=== PATIENT | male | born 1960 | race Caucasian/White ===

== ENCOUNTER → 2016-12-21 | Outpatient (CLI) | payer OTHER ==
[~2016-12-21] VITALS: Ht 177.8 cm; Wt 141.4 kg
[2016-12-21 14:42] VITALS: BP 127/79; PULSE 67; Ht 177.8 cm; Wt 141.4 kg
== END | disposition home or self-care (01) ==
LOC: C.NEUR 13:33
PROVIDERS: ATTEND Physician Assistant
DX: G47.33 Obstructive sleep apnea (adult) (pediatric) (principal); E66.9 Obesity, unspecified; J34.2 Deviated nasal septum; J34.3 Hypertrophy of nasal turbinates; K21.9 Gastro-esophageal reflux disease without esophagitis

== ENCOUNTER 2019-05-14 18:39 | Inpatient (IN) ==
[2019-05-14] MEDS ORDERED: PROMETHAZINE HCL 12.5 MG in SODIUM CHLORIDE 0.9% 50 ML IV STA ×2 (18:51→20:51)
[2019-05-14] MEDS ORDERED: SODIUM CHLORIDE 0.9% 1000ML 1,000 ML IV SCH (19:00)
[2019-05-14] MEDS ORDERED: PROMETHAZINE 12.5 MG/50.5 ML NSS IV ONE (19:28)
[2019-05-14 19:36] LABS: Hematocrit (blood only) 37.6 % (42-52); Hemoglobin 12.4 g/dL (14.0-18.0); Mean Corpuscular Hemoglobin 27.4 pg (25-34); Mean Platelet Volume 9.3 fL (7.4-10.4); Platelet Count 279 K/uL (130-400); Red Blood Count 4.53 M/uL (4.7-6.1); White Blood Count 16.09 K/uL (4.8-10.8)
[2019-05-14 19:53] LABS: Albumin Level 2.8 gm/dl (3.4-5.0); BUN Creatinine Ratio 20.2 (10-20); Calcium 8.6 mg/dl (8.5-10.1); Creatinine Clr Calc Pharmacy 121.6 ml/min; Est GFR (African American) 114.6; Est GFR (Non-African American) 98.9; Potassium 3.7 mmol/L (3.5-5.1)
--- NOTE | 2019-05-14 19:54 | Emergency Department Note ---
History of Present Illness General Chief complaint: Vomiting Stated complaint: THROWING UP LAST 2 DAYS Source: patient and family Mode of arrival: ambulatory Limitations: no limitations History of Present Illness Provider complaint: Vomiting Onset (ago): day(s) 2 Maximum Pain Intensity: 1 Current Pain Intensity: 0 Relieved By: + none Exacerbated By: + eating Treatments prior to arrival: none (Compazine and Zofran, last dose last even ing.) This patient is a 58-year-old male who presents emergency department with complaints of vomiting, particularly after eating for the last several days. The patient has stage IV pancreatic cancer and recently completed his second round of chemotherapy. He did receive IV fluids and antiemetics 2 days ago at the cancer center. Patient's states shortly thereafter he began vomiting with any p.o. intake. Patient denies any pain, except with active vomiting. He denies any recent fevers or passing blood in the vomit or stool. Patient complains of dry mouth and inability to tolerate even sips of water. Home Medications Home Medications Medication Instructions Recorded Confirmed Type atenolol 50 mg tablet 50 mg PO HS tab 12/16/18 05/14/19 History [facility]-3 1 cap PO QAM 02/13/19 05/14/19 History aspirin 81 mg PO HS 02/13/19 05/14/19 History atorvastatin 20 mg PO QAM 02/13/19 05/14/19 History cetirizine [24Hour Allergy] 10 mg PO QAM 02/13/19 05/14/19 History losartan [Cozaar] 25 mg PO QAM 02/13/19 05/14/19 History multivitamin 1 tab PO QAM 02/13/19 05/14/19 History ibuprofen 600 - 800 mg PO BID PRN 03/31/19 05/14/19 History ascorbic acid (vitamin C) 500 mg 500 mg PO QAM 04/08/19 05/14/19 History capsule cholecalciferol (vitamin D3) 4,000 4,000 units PO DAILY 04/08/19 05/14/19 History unit capsule lactobacillus combination no.9 4 4,000 mmu cells PO DAILY 04/08/19 05/14/19 History billion cell capsule metformin 500 mg tablet 1,000 mg PO BID tab 04/08/19 05/14/19 History Juice Plus 1 dose PO DAILY 04/11/19 05/14/19 History acetaminophen [Tylenol Extra 1,000 mg PO Q6H PRN 04/16/19 05/14/19 History Strength] dronabinol [Marinol] 2.5 mg PO BID PRN 05/14/19 05/14/19 History lorazepam [Ativan] 0.5 mg PO Q4 PRN 05/14/19 05/14/19 History ondansetron HCl [Zofran] 8 mg PO Q8 PRN 05/14/19 05/14/19 History prochlorperazine maleate 10 mg PO Q6 PRN 05/14/19 05/14/19 History [Compazine] promethazine 25 mg AR Q6H PRN #12 ea 05/14/19 Rx sertraline 50 mg PO DAILY 05/14/19 05/14/19 History Allergies Allergy/AdvReac Type Severity Reaction Status Date / Time lisinopril Allergy Unknown Cough Verified 05/14/19 20:52 Past Med/Surg History Medical History Diabetes mellitus, type 2 NIDDM Fatty liver Hx of cardiac murmur no murmur noted per anesthesia evaluation 02/14/19 ([facility] Hyperlipidemia Hypertension Malignant neoplasm of pancreas metastatic to liver Morbid obesity Pancreatic cancer (Acute) Port-A-Cath in place (04/16/19) Insertion of Mediport into Left Internal Jugular with Fluoroscopy Dr. Estrada 04/16/19 Sleep apnea CPAP Surgical History History of tonsillectomy History of tooth extraction Hx of biopsy PANCREAS Strabismus REPAIR Family History Father Family history of diabetes mellitus Diabetes Mother Breast cancer Social History Preferred Language: Cuban Communication Ability: Effective Annual Campaign Manager Required: No Beliefs That Will Affect Care: None marital status: Current Living Situation: Spouse Feels Safe at Home: Yes Smoking Status: Never smoker Second Hand Exposure: No ; Hx Alcohol Use: No Hx Substance Use: No Review of Systems See HPI for pertinent positives & negatives. and A total of 10 systems reviewed and were otherwise negative Physical Exam Vital Signs Vital Signs - 24 hr 05/15/19 07:18 05/15/19 12:01 Temperature 37.1 C 36.8 C Temperature Source Oral Oral Pulse Rate [Right Finger] 73 80 Respiratory Rate 18 16 Blood Pressure [Right Arm] 130/78 142/81 H Blood Pressure Mean [Right Arm] 95 101 Blood Pressure Position [Right Arm] Lying Lying Pulse Oximetry 97 95 Vital signs reviewed. General: Well-appearing 58-year-old male, in some discomfort. No distress. HEENT: No scleral icterus, PERRLA, neck supple. Atraumatic. Cardiovascular: Regular rate and rhythm, no extra sounds. Pulmonary: Clear to auscultation bilaterally, normal work of breathing. Abdomen: Soft, nontender, nondistended, positive bowel sounds. Musculoskeletal: Atraumatic, no peripheral edema. Neurologic: Patient awake alert and oriented x 3 Skin: Warm, dry, no rash Course Administered Medications Enoxaparin Sodium (Lovenox) 40 mg SQ Q24H [facility] Stop: 06/14/19 07:59 Last Admin: 05/15/19 08:28 Dose: 40 mg Documented by: [id number] Famotidine 20 mg/ Syringe 5 mls @ 2.5 mls/min IV Q12 [facility] Stop: 06/13/19 23:44 Last Admin: 05/15/19 21:13 Dose: 2.5 mls/min Documented by: [id number] Admin: 05/15/19 08:28 Dose: 2.5 mls/min Documented by: [id number] Admin: 05/15/19 00:52 Dose: 2.5 mls/min Documented by: [id number] Potassium Chloride/Sodium Chloride (Normal Saline W/20 Meq Kcl) 20 meq in 1,000 mls @ 150 mls/hr IV .Q6H40M [facility] Stop: 06/14/19 00:11 Last Admin: 05/15/19 23:18 Dose: 150 mls/hr Documented by: [id number] Infusion: 05/15/19 20:13 Dose: 150 mls/hr Documented by: [id number] Admin: 05/15/19 13:32 Dose: 150 mls/hr Documented by: [id number] Infusion: 05/15/19 13:15 Dose: 150 mls/hr Documented by: [id number] Admin: 05/15/19 06:34 Dose: 150 mls/hr Documented by: [id number] Infusion: 05/15/19 06:34 Dose: 150 mls/hr Documented by: [id number] Admin: 05/15/19 00:51 Dose: 150 mls/hr Documented by: [id number] Insulin Aspart (Novolog Flexpen) 0 units SC ACHS [facility] Stop: 06/14/19 20:59 Last Admin: 05/15/19 21:53 Dose: 3 units Documented by: [id number] Cosigned by: [id number] Lorazepam (Ativan) 0.5 mg PO Q6H PRN PRN Reason: Anxiety Stop: 06/14/19 16:54 Last Admin: 05/15/19 17:06 Dose: 0.5 mg Documented by: [id number] Metoclopramide HCl (Reglan) 10 mg IV Q6H [facility] Stop: 06/14/19 11:59 Last Admin: 05/15/19 22:21 Dose: 10 mg Documented by: [id number] Admin: 05/15/19 15:50 Dose: 10 mg Documented by: [id number] Discontinued Medications Sodium Chloride (Nss 1000ml) 1,000 mls @ 999 mls/hr IV .Q1H1M [facility] Stop: 05/14/19 20:00 Last Infusion: 05/14/19 20:46 Dose: 0 mls/hr Documented by: [id number] Admin: 05/14/19 19:32 Dose: 999 mls/hr Documented by: [id number] Promethazine HCl 12.5 mg/ (Sodium Chloride) 50.5 mls @ 202 mls/hr IV NOW STA Stop: 05/14/19 19:05 Last Admin: 05/14/19 19:39 Dose: Not Given Documented by: [id number] Promethazine HCl 12.5 mg/ (Sodium Chloride) 50.5 mls @ 202 mls/hr IV NOW STA Stop: 05/14/19 21:05 Last Infusion: 05/14/19 21:33 Dose: 0 mls/hr Documented by: [id number] Admin: 05/14/19 21:14 Dose: 202 mls/hr Documented by: [id number] Dextrose/Sodium Chloride (D5w And Nss) 1,000 mls @ 125 mls/hr IV .Q8H [facility] Stop: 06/13/19 21:59 Last Infusion: 05/15/19 22:27 Dose: 0 mls/hr Documented by: [id number] Admin: 05/14/19 21:55 Dose: 125 mls/hr Documented by: [id number] Promethazine HCl 25 mg/ Sodium (Chloride) 51 mls @ 204 mls/hr IV Q6H PRN PRN Reason: Nausea And Vomiting Stop: 06/13/19 23:53 Last Infusion: 05/15/19 04:30 Dose: 0 mls/hr Documented by: [id number] Admin: 05/15/19 04:06 Dose: 204 mls/hr Documented by: [id number] Potassium Phosphate 9 mmol/ (Sodium Chloride) 253 mls @ 88 mls/hr IV ONE ONE Stop: 05/15/19 16:22 Last Infusion: 05/15/19 16:30 Dose: 0 mls/hr Documented by: [id number] Admin: 05/15/19 13:31 Dose: 88 mls/hr Documented by: [id number] Insulin Aspart (Novolog Flexpen) 0 units SC Q6 [facility] Stop: 06/14/19 05:59 Last Admin: 05/15/19 12:33 Dose: 3 units Documented by: [id number] Cosigned by: [id number] Admin: 05/15/19 06:35 Dose: 2 units Documented by: [id number] Cosigned by: [id number] Insulin Aspart (Novolog Flexpen) 0 units SC Q6 [facility] Stop: 06/14/19 05:59 Last Admin: 05/15/19 18:20 Dose: 7 units Documented by: [id number] Cosigned by: [id number] Lorazepam (Ativan) 0.5 mg PO NOW STA Stop: 05/15/19 21:31 Last Admin: 05/15/19 21:52 Dose: 0.5 mg Documented by: [id number] Metoclopramide HCl (Reglan) 10 mg IV NOW STA Stop: 05/15/19 09:23 Last Admin: 05/15/19 10:34 Dose: 10 mg Documented by: [id number] Ondansetron HCl (Zofran) 4 mg IV Q6H PRN PRN Reason: Nausea Stop: 06/14/19 00:11 Last Admin: 05/15/19 06:46 Dose: 4 mg Documented by: [id number] Admin: 05/15/19 00:51 Dose: 4 mg Documented by: [id number] Ondansetron HCl (Zofran) 4 mg IV NOW STA Stop: 05/15/19 09:23 Last Admin: 05/15/19 09:31 Dose: 4 mg Documented by: [id number] Promethazine HCl (Phenergan) Confirm Administered Dose 12.5 mg IV .STK-MED ONE Stop: 05/14/19 19:29 Last Admin: 05/14/19 19:32 Dose: 12.5 mg Documented by: [id number] Medical Decision Making Differential Diagnosis Differential diagnosis: Etiologies such as chemotherapeutic effect, bowel obstruction, gastroenteritis, food borne illness, appendicitis, diverticulitis, inflammatory bowel disease, GI bleed, biliary pathology, cardiac process, intracranial process, as well as others were entertained. Medical Records Attestation: I reviewed the patient's medical records. Home Medications Current Medication List: was personally reviewed by me Laboratory Data Attestation: I reviewed the patient's lab results. Result diagrams: 05/15/19 08:36 05/15/19 08:36 Lab Results 05/14/19 05/14/19 05/15/19 Range/Units 17:25 17:25 00:24 WBC 16.09 H (4.8-10.8) K/uL RBC 4.53 L (4.7-6.1) M/uL Hgb 12.4 L (14.0-18.0) g/dL Hct 37.6 L (42-52) % MCV 83.0 (80-100) fL MCH 27.4 (25-34) pg MCHC 33.0 (32-36) g/dL RDW Std Deviation 42.0 (36.4-46.3) fL RDW Coeff of Chava 14.0 (11.5-14.5) % Plt Count 279 (130-400) K/uL MPV 9.3 (7.4-10.4) fL Immature Gran % (Auto) 6.7 % Neut % (Auto) 83.7 % Lymph % (Auto) 6.2 % Grady % (Auto) 2.3 % Eos % (Auto) 0.9 % Baso % (Auto) 0.2 % Immature Gran # (Auto) 1.08 H (0.00-0.02) K/uL Neut # (Auto) 13.47 H (1.4-6.5) K/uL Lymph # (Auto) 1.00 L (1.2-3.4) K/uL Grady # (Auto) 0.37 (0.11-0.59) K/uL Eos # (Auto) 0.14 (0-0.5) K/uL Baso # (Auto) 0.03 (0-0.2) K/uL Hypersegmented Neuts 1+ Sodium 135 L (136-145) mmol/L Potassium 3.7 (3.5-5.1) mmol/L Chloride 100 (98-107) mmol/L Carbon Dioxide 26 (21-32) mmol/L Anion Gap 9.0 (3-11) BUN 17 (7-18) mg/dl Creatinine 0.82 (0.6-1.4) mg/dl Est Cr Clr Drug Dosing 121.6 ml/min Est GFR ( Amer) 114.6 Est GFR (Non-Af Amer) 98.9 BUN/Creatinine Ratio 20.2 H (10-20) Glucose 263 H (70-99) mg/dl POC Glucose 254 H (70-99) mg/dl Calcium 8.6 (8.5-10.1) mg/dl Phosphorus (2.5-4.9) mg/dl Magnesium (1.8-2.4) mg/dl Total Bilirubin 0.6 (0.2-1) mg/dl AST 15 (15-37) U/L ALT 26 (12-78) U/L Alkaline Phosphatase 501 H (45-117) U/L Total Protein 7.2 (6.4-8.2) gm/dl Albumin 2.8 L (3.4-5.0) gm/dl Globulin 4.4 H (2.5-4.0) gm/dl Albumin/Globulin Ratio 0.6 L (0.9-2) Lipase 87 (73-393) U/L 05/15/19 05/15/19 05/15/19 Range/Units 03:52 06:05 08:36 WBC 14.12 H (4.8-10.8) K/uL RBC 4.21 L (4.7-6.1) M/uL Hgb 11.5 L (14.0-18.0) g/dL Hct 34.5 L (42-52) % MCV 81.9 (80-100) fL MCH 27.3 (25-34) pg MCHC 33.3 (32-36) g/dL RDW Std Deviation 42.0 (36.4-46.3) fL RDW Coeff of Chava 14.0 (11.5-14.5) % Plt Count 226 (130-400) K/uL MPV 8.6 (7.4-10.4) fL Immature Gran % (Auto) % Neut % (Auto) % Lymph % (Auto) % Grady % (Auto) % Eos % (Auto) % Baso % (Auto) % Immature Gran # (Auto) (0.00-0.02) K/uL Neut # (Auto) (1.4-6.5) K/uL Lymph # (Auto) (1.2-3.4) K/uL Grady # (Auto) (0.11-0.59) K/uL Eos # (Auto) (0-0.5) K/uL Baso # (Auto) (0-0.2) K/uL Hypersegmented Neuts Sodium (136-145) mmol/L Potassium (3.5-5.1) mmol/L Chloride (98-107) mmol/L Carbon Dioxide (21-32) mmol/L Anion Gap (3-11) BUN (7-18) mg/dl Creatinine (0.6-1.4) mg/dl Est Cr Clr Drug Dosing ml/min Est GFR ( Amer) Est GFR (Non-Af Amer) BUN/Creatinine Ratio (10-20) Glucose (70-99) mg/dl POC Glucose 206 H 200 H (70-99) mg/dl Calcium (8.5-10.1) mg/dl Phosphorus (2.5-4.9) mg/dl Magnesium (1.8-2.4) mg/dl Total Bilirubin (0.2-1) mg/dl AST (15-37) U/L ALT (12-78) U/L Alkaline Phosphatase (45-117) U/L Total Protein (6.4-8.2) gm/dl Albumin (3.4-5.0) gm/dl Globulin (2.5-4.0) gm/dl Albumin/Globulin Ratio (0.9-2) Lipase (73-393) U/L 05/15/19 05/15/19 Range/Units 08:36 11:57 WBC (4.8-10.8) K/uL RBC (4.7-6.1) M/uL Hgb (14.0-18.0) g/dL Hct (42-52) % MCV (80-100) fL MCH (25-34) pg MCHC (32-36) g/dL RDW Std Deviation (36.4-46.3) fL RDW Coeff of Chava (11.5-14.5) % Plt Count (130-400) K/uL MPV (7.4-10.4) fL Immature Gran % (Auto) % Neut % (Auto) % Lymph % (Auto) % Grady % (Auto) % Eos % (Auto) % Baso % (Auto) % Immature Gran # (Auto) (0.00-0.02) K/uL Neut # (Auto) (1.4-6.5) K/uL Lymph # (Auto) (1.2-3.4) K/uL Grady # (Auto) (0.11-0.59) K/uL Eos # (Auto) (0-0.5) K/uL Baso # (Auto) (0-0.2) K/uL Hypersegmented Neuts Sodium 139 (136-145) mmol/L Potassium 3.6 (3.5-5.1) mmol/L Chloride 108 H (98-107) mmol/L Carbon Dioxide 25 (21-32) mmol/L Anion Gap 7.0 (3-11) BUN 13 (7-18) mg/dl Creatinine 0.74 (0.6-1.4) mg/dl Est Cr Clr Drug Dosing 134.7 ml/min Est GFR ( Amer) 119.5 Est GFR (Non-Af Amer) 103.1 BUN/Creatinine Ratio 17.6 (10-20) Glucose 202 H (70-99) mg/dl POC Glucose 218 H (70-99) mg/dl Calcium 8.3 L (8.5-10.1) mg/dl Phosphorus 2.4 L (2.5-4.9) mg/dl Magnesium 2.2 (1.8-2.4) mg/dl Total Bilirubin (0.2-1) mg/dl AST (15-37) U/L ALT (12-78) U/L Alkaline Phosphatase (45-117) U/L Total Protein (6.4-8.2) gm/dl Albumin (3.4-5.0) gm/dl Globulin (2.5-4.0) gm/dl Albumin/Globulin Ratio (0.9-2) Lipase (73-393) U/L Blood Pressure Blood Pressure Findings: Normal blood pressure Blood Pressure Disposition: did not require urgent referral MDM Narrative This patient was evaluated and appeared to be in no significant distress. Patient's physical examination is concerning for chronically ill state. IV fluids were administered and the patient was given Phenergan 12.5 mg IV. His laboratory work is notable for an elevated WBC at 16 with a creatinine of 0.82. Patient's electrolytes are within normal limits. Patient's glucose is mildly elevated. Patient's abdominal x-ray series reveals no evidence of obstruction or free air. Patient did require an additional 12.5 mg of IV Phenergan. He declined the need for any pain medication. I did help multiple discussions with the patient and his family. I reviewed the patient's medical records and input from oncology. Patient was able to tolerate several ice chips. I am concerned that the patient and family do not have a realistic expectation for quality of life and progression of this disease. Patient feels most comfortable with an overnight stay for IV hydration and nausea management. He will require a palliative care consult and discussion with oncology. Patient and family are aware of this plan and agree. Impression & Plan Chemotherapy induced nausea and vomiting, Pancreatic cancer Discharge Plan Visit Data *Final* Discharge Date/Time: 05/14/19 23:33 Chief Complaint: Vomiting Stated Complaint: THROWING UP LAST 2 DAYS ED Provider: Kelsey Hernandez Discharge Problem: Chemotherapy induced nausea and vomiting, Pancreatic cancer Patient Disposition: Admitted As Inpatient Condition: Fair Discharge Instructions Interventions: ED Discharge Assessment Last Done: 05/14/19 23:33 Discharge Problem: Pancreatic cancer Qualifiers: Pancreatic malignancy location: unspecified Qualified Code(s): C25.9 - M alignant neoplasm of pancreas, unspecified
[2019-05-14 19:56] LABS: Albumin Globulin Ratio 0.6 (0.9-2); Bilirubin,Total 0.6 mg/dl (0.2-1); Globulin 4.4 gm/dl (2.5-4.0); Total Protein 7.2 gm/dl (6.4-8.2)
[2019-05-14 20:05] LABS: Basophils # (auto) 0.03 K/uL (0-0.2); Basophils % (auto) 0.2 %; Eosinophils # (auto) 0.14 K/uL (0-0.5); Eosinophils % (auto) 0.9 %; Immature Granulocytes # (auto) 1.08 K/uL (0.00-0.02); Immature Granulocytes % (auto) 6.7 %; Lymphocytes % (auto) 6.2 %; Monocytes # (auto) 0.37 K/uL (0.11-0.59); Monocytes % (auto) 2.3 %; Neutrophils # (auto) 13.47 K/uL (1.4-6.5); Neutrophils % (auto) 83.7 %
--- NOTE | 2019-05-14 20:11 | XRay Report ---
PA CHEST RADIOGRAPH AND UPRIGHT AND SUPINE AP RADIOGRAPHS OF THE ABDOMEN CLINICAL HISTORY: Vomiting. COMPARISON STUDY: Chest radiograph April 16, 2019. FINDINGS: Left internal jugular [id number] is in place. There is mild elevation of the right hem idiaphragm. No pneumothorax or pleural effusion is noted. There is no consolidation or evidence for p ulmonary edema. Cardiomediastinal silhouette is normal. There is no free air. The bowel gas pattern i s unremarkable. IMPRESSION: 1. No free air or evidence of bowel obstruction. 2. No acute cardiopulmonary findings. ACT 112: Negative or not required by law. Electronically signed by: Otis Vizcaino M.D. 05/14/2019 8:10 PM
[2019-05-14] MEDS ORDERED: D5W AND NSS 1,000 ML IV SCH (22:00)
--- NOTE | 2019-05-14 23:20 | History & Physical Report ---
Date of Service May 14, 2019 Assessment & Plan (1) Chemotherapy induced nausea and vomiting: Chemotherapy-induced nausea vomiting/malignant neoplasm of pancreas metastatic to liver- NPO IV fluids Place on Zofran 4 mg IV every 6 hours as needed, with repeat in 30 minutes if needed. As a backup have the Phenergan 25 mg IV every [address] of abdomen pelvis to assess for possible early ileus/obstruction. Consult oncology. Consult palliative care. Present on Admission?: Yes (2) Malignant neoplasm of pancreas metastatic to liver: See above Present on Admission?: Yes (3) Laryngopharyngeal reflux: Placed on famotidine 20 mg IV every 12 hours Present on Admission?: Yes (4) Obstructive sleep apnea of adult: Would not use CPAP mask due to issues with active vomiting Present on Admission?: Yes (5) Hyperlipidemia: Hold atorvastatin Present on Admission?: Yes (6) Hypertension: Hold aspirin, losartan and atenolol Present on Admission?: Yes (7) Diabetes mellitus, type 2: Hold metformin. Placed on Accu-Cheks before meals and at bedtime/every 6 hours, with NovoLog coverage per scale Present on Admission?: Yes (8) Moderate dehydration: Placed on normal saline + KCl 20 mEq at 150 mils per hour Present on Admission?: Yes History of Present Illness Chief Complaint: The patient presents to the emergency department with uncontrolled nausea and vomiting over the past 2 days. Primary Care Provider: Georges Licea MD The patient is a 58-year-old male with a past medical history of metastatic pancreatic cancer to liver, presently undergoing chemotherapy, who is now been able to hold anything down for the past 2 days. He did receive IV fluids 2 days ago at the cancer center. He reports his mouth is very dry, and is unable to tolerate his oral medications or sips of water. Allergies Allergy/AdvReac Type Severity Reaction Status Date / Time lisinopril Allergy Unknown Cough Verified 05/14/19 20:52 Home Medications Home Medications Medication Instructions Recorded Confirmed Type atenolol 50 mg tablet 50 mg PO HS tab 12/16/18 05/14/19 History [place]-3 1 cap PO QAM 02/13/19 05/14/19 History aspirin 81 mg PO HS 02/13/19 05/14/19 History atorvastatin 20 mg PO QAM 02/13/19 05/14/19 History cetirizine [24Hour Allergy] 10 mg PO QAM 02/13/19 05/14/19 History losartan [Cozaar] 25 mg PO QAM 02/13/19 05/14/19 History multivitamin 1 tab PO QAM 02/13/19 05/14/19 History ibuprofen 600 - 800 mg PO BID PRN 03/31/19 05/14/19 History ascorbic acid (vitamin C) 500 mg 500 mg PO QAM 04/08/19 05/14/19 History capsule cholecalciferol (vitamin D3) 4,000 4,000 units PO DAILY 04/08/19 05/14/19 History unit capsule lactobacillus combination no.9 4 4,000 mmu cells PO DAILY 04/08/19 05/14/19 History billion cell capsule metformin 500 mg tablet 1,000 mg PO BID tab 04/08/19 05/14/19 History Juice Plus 1 dose PO DAILY 04/11/19 05/14/19 History acetaminophen [Tylenol Extra 1,000 mg PO Q6H PRN 04/16/19 05/14/19 History Strength] dronabinol [Marinol] 2.5 mg PO BID PRN 05/14/19 05/14/19 History lorazepam [Ativan] 0.5 mg PO Q4 PRN 05/14/19 05/14/19 History ondansetron HCl [Zofran] 8 mg PO Q8 PRN 05/14/19 05/14/19 History prochlorperazine maleate 10 mg PO Q6 PRN 05/14/19 05/14/19 History [Compazine] promethazine 25 mg ID Q6H PRN #12 ea 05/14/19 Rx sertraline 50 mg PO DAILY 05/14/19 05/14/19 History Past Med/Surg History Medical History Diabetes mellitus, type 2 NIDDM Fatty liver Hx of cardiac murmur no murmur noted per anesthesia evaluation 02/14/19 ([facility]) Hyperlipidemia Hypertension Morbid obesity Pancreatic cancer Port-A-Cath in place (04/16/19) Insertion of Mediport into Left Internal Jugular with Fluoroscopy Dr. Estrada 04/16/19 Sleep apnea CPAP Surgical History History of tonsillectomy History of tooth extraction Hx of biopsy PANCREAS Strabismus REPAIR Family History Father Family history of diabetes mellitus Diabetes Mother Breast cancer Social History Preferred Language: Northern Irish Communication Ability: Effective Control Specialist Required: No Beliefs That Will Affect Care: None marital status: Current Living Situation: Spouse Feels Safe at Home: Yes Smoking Status: Never smoker Do You Dip or Chew Tobacco: No ; Second Hand Exposure: No ; Hx Alcohol Use: No Hx Substance Use: No Review of Systems Review of Systems: The patient denies chest pain, palpitations, shortness of breath, dyspnea on exertion, cough, lower extremity swelling, leonides, chills, sweats, diarrhea , constipation, abdominal pain, pelvic pain, blood in urine or stool, dysuria, urinary frequency or urgency, lightheadedness, dizziness, headache, memory loss, loss of consciousness, rash, abnormal bruising or bleeding, imbalance, focal weakness, numbness or tingling in arms or legs, generalized arthralgias or myalgias, back or neck pain, or night sweats. The review of systems is otherwise negative other than for that already noted above, and at least 10 systems have been reviewed. Physical Exam Physical Exam: The patient is awake, alert and oriented 3, looks very fatigued, normocephalic and atraumatic, lying in bed and in no acute distress. HEENT--PERRL, EOMI, mucous membranes and oropharynx very dry. Neck--supple. No JVD. No bruits. Thyroid normal, trachea midline, no adenopathy. Heart--normal S1 and S2. No murmurs, rubs or gallops. Lungs--clear bilaterally, no respiratory distress, no accessory muscle use. Abdomen--decreased bowel sounds and soft. Nontender. Nondistended. Obese. Extremities--no cyanosis or clubbing. No edema. Dermatologic--skin is dry, no rashes. Neurologic--cranial nerves II through XII grossly intact. Rheumatologic--normal range of motion. Psychiatric--depressed Results & Data Vital Signs (Past 12 Hours) Vital Signs Temp Pulse Pulse Resp BP BP Pulse Ox 05/14/19 23:07 82 20 131/86 98 05/14/19 21:15 74 20 148/96 H 98 05/14/19 20:10 73 24 96 05/14/19 20:00 69 24 96 05/14/19 19:58 70 31 H 96 05/14/19 19:41 69 25 H 95 05/14/19 19:39 69 96 05/14/19 19:36 69 26 H 136/84 95 05/14/19 18:43 98.4 F 84 18 111/75 97 Laboratory Results Laboratory Results WBC 16.09 K/uL (4.8-10.8) H 05/14/19 17:25 RBC 4.53 M/uL (4.7-6.1) L 05/14/19 17:25 Hgb 12.4 g/dL (14.0-18.0) L 05/14/19 17:25 Hct 37.6 % (42-52) L 05/14/19 17:25 MCV 83.0 fL (80-100) 05/14/19 17:25 MCH 27.4 pg (25-34) 05/14/19 17:25 MCHC 33.0 g/dL (32-36) 05/14/19 17:25 RDW Std Deviation 42.0 fL (36.4-46.3) 05/14/19 17:25 RDW Coeff of Chava 14.0 % (11.5-14.5) 05/14/19 17:25 Plt Count 279 K/uL (130-400) 05/14/19 17:25 MPV 9.3 fL (7.4-10.4) 05/14/19 17:25 Immature Gran % (Auto) 6.7 % 05/14/19 17:25 Neut % (Auto) 83.7 % 05/14/19 17:25 Lymph % (Auto) 6.2 % 05/14/19 17:25 [place] % (Auto) 2.3 % 05/14/19 17:25 Eos % (Auto) 0.9 % 05/14/19 17:25 Baso % (Auto) 0.2 % 05/14/19 17:25 Immature Gran # (Auto) 1.08 K/uL (0.00-0.02) H 02/05/20 17:25 Neut # (Auto) 13.47 K/uL (1.4-6.5) H 05/14/19 17:25 Lymph # (Auto) 1.00 K/uL (1.2-3.4) L 05/14/19 17:25 [place] # (Auto) 0.37 K/uL (0.11-0.59) 05/14/19 17:25 Eos # (Auto) 0.14 K/uL (0-0.5) 05/14/19 17:25 Baso # (Auto) 0.03 K/uL (0-0.2) 05/14/19 17:25 Hypersegmented Neuts 1+ 05/14/19 17:25 Sodium 135 mmol/L (136-145) L 05/14/19 17:25 Potassium 3.7 mmol/L (3.5-5.1) 05/14/19 17:25 Chloride 100 mmol/L (98-107) 05/14/19 17:25 Carbon Dioxide 26 mmol/L (21-32) 05/14/19 17:25 Anion Gap 9.0 (3-11) 05/14/19 17:25 BUN 17 mg/dl (7-18) 05/14/19 17:25 Creatinine 0.82 mg/dl (0.6-1.4) 05/14/19 17:25 Est Cr Clr Drug Dosing 121.6 ml/min 05/14/19 17:25 Est GFR ( Amer) 114.6 05/14/19 17:25 Est GFR (Non-Af Amer) 98.9 05/14/19 17:25 BUN/Creatinine Ratio 20.2 (10-20) H 05/14/19 17:25 Glucose 263 mg/dl (70-99) H 05/14/19 17:25 Calcium 8.6 mg/dl (8.5-10.1) 05/14/19 17:25 Total Bilirubin 0.6 mg/dl (0.2-1) 05/14/19 17:25 AST 15 U/L (15-37) 05/14/19 17:25 ALT 26 U/L (12-78) 05/14/19 17:25 Alkaline Phosphatase 501 U/L (45-117) H 05/14/19 17:25 Total Protein 7.2 gm/dl (6.4-8.2) 05/14/19 17:25 Albumin 2.8 gm/dl (3.4-5.0) L 05/14/19 17:25 Globulin 4.4 gm/dl (2.5-4.0) H 05/14/19 17:25 Albumin/Globulin Ratio 0.6 (0.9-2) L 05/14/19 17:25 Lipase 87 U/L (73-393) 05/14/19 17:25 Diagnostic Findings [place], [place] [phone] XRay Report Patient: LIZZETH PADILLA Date: 05/14/19 MR#: [id number]: [address] Acct ID:[id number]: Date: 1960City Zip: [place] [address] Age: 58Location: ED Sex: M Room/Bed: Att Phy:Diagnosis: THROWING UP LAST 2 DAYS Rocio Phy: Bob Licea, MDService Date: 05/14/19 Fam Phy: Jaime Jc D.O.Interpreting Phy: Otis Vizcaino MD Admit Phy: Ordering Phy: Kelsey Hernandez M.D. cc: ~ PA CHEST RADIOGRAPH AND UPRIGHT AND SUPINE AP RADIOGRAPHS OF THE ABDOMEN CLINICAL HISTORY: Vomiting. COMPARISON STUDY: Chest radiograph April 16, 2019. FINDINGS: Left internal jugular [id number] is in place. There is mild elevation of the right hemidiaphragm. No pneumothorax or pleural effusion is no jovanni. There is no consolidation or evidence for pulmonary edema. Cardiomediastinal silhouette is normal. There is no free air. The bowel gas pattern is unremarkable. IMPRESSION: 1. No free air or evidence of bowel obstruction. 2. No acute cardiopulmonary findings. ACT 112: Negative or not required by law. Electronically signed by: Otis Vizcaino M.D. 05/14/2019 8:10 PM Dictated: 05/14/192006 Transcribed: 05/14/192006 Code Status & VTE Plan Code Status full code VTE Prophylaxis Plan VTE Prophylaxis will be ordered: Yes PG Care Time/CCT Total # of Minutes Spent Total Time Spent with Patient: Total time spent is greater than 50% in coordination of care (as documented) at patient's floor/unit and/or counseling patient: Coding Level of Care Code 28161 OBS Care - Level 3 Diagnoses Chemotherapy induced nausea and vomiting R11.2; T45.1X5A Malignant neoplasm of pancreas metastatic to liver C25.9; C78.7 Laryngopharyngeal reflux K21.9 Obstructive sleep apnea of adult G47.33 Hyperlipidemia E78.5 Hypertension I10 Diabetes mellitus, type 2 E11.9 Moderate dehydration E86.0
[2019-05-14] MEDS ORDERED: PROMETHAZINE HCL 25 MG in SODIUM CHLORIDE 0.9% 50 ML IV PRN (23:54)
[2019-05-15] MEDS ORDERED: GLUCOSE 40% GEL 15 GM TUBE PO PRN (00:12)
[2019-05-15] MEDS ORDERED: CARBOHYDRATES FOR HYPOGLYCEMIA PO PRN (00:12)
[2019-05-15] MEDS ORDERED: GLUCAGON FOR INJ 1 MG VIAL SQ PRN (00:12)
[2019-05-15] MEDS ORDERED: DEXTROSE 50% 50 ML SYRINGE IV PRN (00:12)
[2019-05-15] MEDS ORDERED: GLUCOSE 10 TABS/TUBE PO PRN (00:12)
[2019-05-15] MEDS: ONDANSETRON INJ 2 MG/ML 2 ML VIAL IV PRN ×2 (00:51→06:46)
[2019-05-15] MEDS: NSS + 20MEQ KCL 20 MEQ/1,000 ML BAG IV SCH ×4 (00:51→23:18)
[2019-05-15] MEDS: FAMOTIDINE 20 MG in SYRINGE 3 ML IV SCH ×3 (00:52→21:13)
[2019-05-15] MEDS ORDERED: Nursing to Pharmacy Communication ONE ×3 (04:17→21:36)
[2019-05-15] MEDS: INSULIN ASPART 100 UNITS/ML 3 ML PEN SC SCH ×3 (06:35→21:53)
[2019-05-15] MEDS ORDERED: INSULIN ASPART 100 UNITS/ML 3 ML PEN SC SCH ×2 (07:30→13:20)
--- NOTE | 2019-05-15 07:36 | CT Scan Report ---
CT OF THE ABDOMEN AND PELVIS WITHOUT CONTRAST CLINICAL HISTORY: intractable N/V, metastatic pancreatic cancer. COMPARISON STUDY: CT of the abdomen and pelvis March 26, 2019. TECHNIQUE: Axial images of the abdomen and pelvis were obtained without IV contrast. Images were revi ewed in the axial, sagittal, and coronal planes. Automated exposure control was utilized for the keith dy. A dose lowering technique was utilized adhering to the principles of ALARA. FINDINGS: Imaged portions of the lower chest demonstrate interval increase in size of several left lo wer lobe nodules that measure up to 9 mm. These previously measured [address] of March 26, 2019. Size and number of innumerable hepatic metastases has increased since prior CT. Index right hepatic l obe lesion on image 28 of 104 measures 4 cm. It previously measured 3.6 cm. Index segment 5 lesion on image 40 measures 4.4 cm. It previously measured 3.7 cm. The main pancreatic mass within the pancrea tic body with suspected splenic vein occlusion is similar to prior exam with associated collateral. M ild adjacent infiltration is unchanged. This is suboptimally assessed on this unenhanced exam. A port acaval lymph node on image 159 of 516 measures 3.4 x 1.7 cm. This has mildly increased since CT of 2018. An omental nodule has mildly increased in size. This now measures 2.3 cm. It previou sly measured 1.7 cm. Numerous enlarged retroperitoneal lymph nodes have mildly increased in size as w ell. A right pelvic implant/node has increased in size. There is no evidence for a bowel obstruction. No pneumatosis, free air or portal venous gas is present. There is no biliary ductal dilatation. The re are no suspicious osseous lesions. Small gallstones within the gallbladder noted without evidence for acute cholecystitis. There is no hydronephrosis. IMPRESSION: 1. Progression of metastatic disease since CT of March 26, 2019, including innumerable hepatic met astases, small pulmonary metastases, garrett metastases and omental implants. 2. No significant change in the primary pancreatic body lesion. 3. No bowel obstruction. ACT 112: Negative or not required by law. Electronically signed by: Otis Vizcaino M.D. 05/15/2019 7:35 AM
[2019-05-15] MEDS: ENOXAPARIN INJ 40 MG/0.4 ML SYR SQ SCH (08:28)
[2019-05-15 08:49] LABS: Hematocrit (blood only) 34.5 % (42-52); Hemoglobin 11.5 g/dL (14.0-18.0); Mean Corpuscular Hemoglobin 27.3 pg (25-34); Mean Corpuscular Hgb Conc 33.3 g/dL (32-36); Mean Corpuscular Volume 81.9 fL (80-100); Mean Platelet Volume 8.6 fL (7.4-10.4); Platelet Count 226 K/uL (130-400); Red Blood Count 4.21 M/uL (4.7-6.1); White Blood Count 14.12 K/uL (4.8-10.8)
[2019-05-15 09:18] LABS: BUN Creatinine Ratio 17.6 (10-20); Calcium 8.3 mg/dl (8.5-10.1); Creatinine Clr Calc Pharmacy 134.7 ml/min; Est GFR (African American) 119.5; Est GFR (Non-African American) 103.1; Magnesium 2.2 mg/dl (1.8-2.4); Potassium 3.6 mmol/L (3.5-5.1)
[2019-05-15 09:19] LABS: Phosphorus 2.4 mg/dl (2.5-4.9)
[2019-05-15] MEDS ORDERED: ONDANSETRON INJ 2 MG/ML 2 ML VIAL IV STA (09:22)
[2019-05-15] MEDS ORDERED: METOCLOPRAMIDE HCL INJ 5 MG/ML 2 ML VIAL IV STA (09:22)
[2019-05-15] MEDS ORDERED: PROCHLORPERAZINE 10 MG in SYRINGE 8 ML IV PRN (09:33)
--- NOTE | 2019-05-15 10:48 | Consultation Report ---
DATE OF CONSULTATION: 05/15/2019 REASON FOR CONSULTATION: A 58-year-old gentleman with metastatic adenocarcinoma of the pancreas, admitted for intractable nausea and vomiting. HISTORY OF PRESENT ILLNESS: Jorge is a pleasant but unfortunate 58-year-old gentleman who was admitted to [facility] last night with intractable nausea and vomiting. Jorge has had ____ since diagnosis established on the 31 of March when he had presented with hepatic metastatic pancreatic cancer. He was recently started on FOLFIRINOX and received his last dose on 05/08/2019. As previously stated, Jorge has had trouble from the onset with poor appetite, dysgeusia, weight loss and intermittent nausea as well as pain issues. I originally met Jorge back just prior to [place] at which time noticed increased abdominal pain with radiation towards the thoracic spine. Shortly after undergoing colonoscopy, the patient had developed bloating and discomfort. As symptoms worsen, he finally sought medical attention with his primary care physician. CT scan of the abdomen and pelvis performed on 03/26/2019 revealed an infiltrative heterogeneous pancreatic body mass measuring 6 x 3.3 cm encasing the splenic artery and vein as well as upper abdominal varices suspicious for splenic vein occlusion. Hepatic metastatic disease was also noted with enlarged periportal and retroperitoneal lymphadenopathy. A single omental nodule measuring 1.7 x 0.9 cm was also noted. Jorge has lost about 20-25 pounds over the past several weeks prior to diagnosis. Liver biopsy was carried out confirming the diagnosis. Again, his second course of FOLFIRINOX was administered on 05/08. PAST MEDICAL HISTORY: Includes diabetes mellitus type 2, hypertension, hyperlipidemia, obstructive sleep apnea, metastatic pancreatic cancer. PAST SURGICAL HISTORY: Tonsillectomy, tooth extraction, liver biopsy, strabismus repair. MEDICATIONS: Prior to admission, sertraline 50 mg p.o. daily, promethazine 25 mg q.6 hours p.r.n., Compazine 10 mg p.o. 6 hours p.r.n., Zofran 8 mg p.o. q.8 hours p.r.n., Ativan 0.5 mg p.o. q.4 hours p.r.n., Marinol 2.5 mg p.o. b.i.d. p.r.n., Extra Strength Tylenol 1000 mg p.o. q.6 hours p.r.n., metformin 1000 mg p.o. b.i.d., lactobacillus 4000 MMU cells p.o. daily, cholecalciferol 4000 units p.o. daily, ascorbic acid 500 mg p.o. daily, ibuprofen 1600 mg p.o. b.i.d. p.r.n., multivitamin 1 p.o. daily, Cozaar 25 mg p.o. q.a.m., cetirizine 10 mg p.o. q.a.m., atorvastatin 20 mg p.o. daily, omega-3 one capsule p.o. daily, atenolol 50 mg p.o. at bedtime. ALLERGIES: LISINOPRIL. PERSONAL HISTORY: The patient is and resides with his spouse. He is a nonsmoker, nondrinker, non-illicit drug user. FAMILY HISTORY: Positive for diabetes mellitus in his father's side. His mother suffered from breast cancer. REVIEW OF SYSTEMS: GENERAL: As per HPI, most notably for anorexia, weight loss, intractable nausea and vomiting. Denies fevers, chills or sweats. SKIN: No rashes or lesions. No history of dermatoses. HEENT: Negative for headaches, lightheadedness or dizziness. No acute visual or hearing deficits. No sinus symptoms, sore throat or dysphagia. LYMPH: No history of lymphoproliferative disease. CARDIAC: No history of coronary artery disease. No current angina or palpitations. PULMONARY: No history of COPD. He is not short of breath, dyspneic or orthopneic. No cough or hemoptysis. GASTROINTESTINAL: Positive for abdominal pain intermittently as well as intractable nausea and vomiting. His bowel habits have been modestly altered since chemotherapy. He denies hematochezia, melena or catracho rectal bleeding. GENITOURINARY: No hematuria, dysuria, urinary incontinence. PSYCHIATRIC: Positive for anxiety. ENDOCRINE: Negative for thyroid disease. Positive for diabetes mellitus. MUSCULOSKELETAL: No arthralgias or myalgias. No focal muscle weakness. NEUROLOGIC: Negative for seizure, stroke, or migraine headache. HEMATOLOGIC: Positive for leukocytosis attributable to granulocyte colony stimulating growth factor. PHYSICAL EXAMINATION: GENERAL: A very pleasant 58-year-old white male in no acute distress. VITAL SIGNS: Temperature 37.1, pulse 73, respiratory rate 18, blood pressure 130/78. SKIN: Warm, dry, noncyanotic without petechia, rash or ecchymosis. HEENT: Head is atraumatic, normocephalic. Eyes: PERRLA, EOMI. Nares are patent without rhinorrhea or discharge. Throat is clear. Tongue is midline. No buccal lesions or ulcerations. NECK: Supple without JVD or thyromegaly. HEART: Regular rate and rhythm. No clicks, rubs, murmurs or gallops. LUNGS: Clear to auscultation bilaterally. ABDOMEN: Soft, nontender, nondistended. Bowel sounds hypoactive. No rigidity or guarding. EXTREMITIES: Musculoskeletal strength and pulses are equal in all 4 quadrants. No clubbing, cyanosis or edema otherwise. NEUROLOGICALLY: He is awake, alert and oriented x3. Cranial nerves are intact. LABORATORY DATA: WBC count 16,090, hemoglobin 12.4, platelet count 279,000. Sodium 135, potassium 3.7, chloride 100, carbon dioxide 26, creatinine 0.82, BUN 17, glucose 263, alkaline phosphatase 501. Albumin 2.8. RADIOGRAPHIC DATA: KUB negative for free air or obstruction. CT of the abdomen and pelvis results are pending at the time of dictation. IMPRESSION: 1. Intractable nausea and vomiting. 2. Anorexia/weight loss. 3. Intractable chronic pain attributable to metastatic disease. 4. Metastatic pancreatic cancer. 5. Status post FOLFIRINOX. 6. Hypoalbuminemia. PLAN: Mr. Guerra unfortunately has not done well since starting a salvage chemotherapy. I suspect irinotecan to be culprit and will need to strongly consider either switching regimens or perhaps significantly reducing his dose of irinotecan moving forward. Jorge struggled from the onset. He has been put on THC based meds to help with his appetite. He is on multiple antinausea medicines as well. Unfortunately, very common patients receiving chemotherapy has lost taste, which has been prohibitive in maintaining adequate nutrition. This is clearly reflected in his albumin level. Agree with palliative consult. We will plan to reconvene with Jorge once he is medically stable to discuss options. Post the question of potentially switching regimens perhaps single agent gemcitabine where a modified combination of gemcitabine and Abraxane. Await CT scan of the abdomen and pelvis to discuss further with Jorge. Agree with current medical management. We will continue to follow Jorge periodically during his hospital stay.
[2019-05-15] MEDS ORDERED: METOCLOPRAMIDE HCL INJ 5 MG/ML 2 ML VIAL IV PRN (12:00)
[2019-05-15] MEDS ORDERED: POTASSIUM PHOS 3 MMOL/1 ML INFUSION IV STA (13:14)
--- NOTE | 2019-05-15 13:24 | Hospitalist Progress Note ---
Date of Service May 15, 2019 Assessment & Plan (1) Chemotherapy induced nausea and vomiting: - Chemotherapy induced N/V in setting of metastatic disease. - CT A/P showed progression of metastatic disease compared to Mar 2019 including hepatic, small pulm, garrett and omental implants. No evidence of bowel obstruction. - Poor response to Zofran; will start Reglan 10 mg IV q6hr scheduled with Compazine prn -- monitor serial EKGs for QTc prolongation. - NPO; can have ice chips/popsicles if tolerating. - Oncology consulted, may require transition to different chemo regimen once he stabilizes. - Palliative care consulted, appreciate input. (2) Malignant neoplasm of pancreas metastatic to liver: - CT A/P showed progression of disease. Initially diagnosed in Mar 2019; started FOLFIRINOX, last dose on 05/08/19. - Oncology following, may require dose reduction in next cycle of chemo vs. transitioning to Gemcitabine/Abraxane therapy.' - CA 19-9 level in the morning. (3) Laryngopharyngeal reflux: - Pepcid q12hr. (4) Obstructive sleep apnea of adult: - Avoid CPAP mask in setting of N/V. (5) Hyperlipidemia: - Holding statin in setting of N/V. (6) Hypertension: - Holding home Losartan, Atenolol and Aspirin in setting of N/V. (7) Diabetes mellitus, type 2: - Will order A1C in the morning. - Holding home Metformin. - SSI coverage. (8) Anemia: - Chemo induced anemia in setting of FOLFIRINOX therapy. - Monitor CBC daily -- transfuse for hgb <8. (9) Leukocytosis: - WBC currently elevated -- now trending down. - Recent u/a on 05/12: >30 WBC, +1 bacteria. UC was negative. - CXR was negative for PNA. - Continue to monitor -- consider abx coverage for evidence of infection. (10) Moderate dehydration: - IV fluids at 150 cc/hr. Phos level 2.4 - ordered KPhos 9 mmol IV. DVT ppx: Lovenox q24hr. Dispo: Med/surg for treatment of nausea/vomiting. Subjective Pt. is lethargic, will wake up to answer questions but falls asleep quickly. He c/o persistent nausea and dry heaves, is not tolerating PO intake. Had loose BM during this admission. C/o rectal pain with reported "rash" -- no significant findings noted on physical exam. His son and were present at bedside, updated with plan of care. Will also be evaluated by oncology and palliative car e today. Review of Systems Review of Systems: All systems reviewed & are unremarkable except as noted in HPI & below Constitutional: + fatigue, + weakness and + anorexia; no fever and no chills Respiratory: no cough, no dyspnea and no dyspnea on exertion Cardiovascular: no chest pain, no palpitations and no edema Gastrointestinal: + nausea, + vomiting and + diarrhea/loose stools; no abdominal pain and no constipation Genitourinary: no difficulty urinating Musculoskeletal: no back pain and no joint pain Integumentary: no non-healing lesions Physical Exam Physical Exam: General: Resting comfortably, slightly lethargic. Son and were both present at bedside. HEENT: NC/AT; PERRLA with EOMI; [place] conjunctiva, MMM. No erythema of posterior pharynx Neck: Supple and nontender Cardiac: RRR Lungs: CTA bilaterally Abdomen: Bowel normoactive X 4; Nontender to palpation Extremities: Warm. No edema present Neuro: No focal weakness Skin: No rash Results & Data ([facility]) Vital Signs (Past 12 Hours) Vital Signs Temp Pulse Resp BP Pulse Ox 05/15/19 12:01 36.8 C 80 16 142/81 H 95 05/15/19 07:18 37.1 C 73 18 130/78 97 Laboratory Results 05/15/19 05/15/19 05/15/19 Range/Units 11:57 08:36 08:36 WBC 14.12 H (4.8-10.8) K/uL RBC 4.21 L (4.7-6.1) M/uL Hgb 11.5 L (14.0-18.0) g/dL Hct 34.5 L (42-52) % MCV 81.9 (80-100) fL MCH 27.3 (25-34) pg MCHC 33.3 (32-36) g/dL RDW Std Deviation 42.0 (36.4-46.3) fL RDW Coeff of Chava 14.0 (11.5-14.5) % Plt Count 226 (130-400) K/uL MPV 8.6 (7.4-10.4) fL Immature Gran % (Auto) % Neut % (Auto) % Lymph % (Auto) % [place] % (Auto) % Eos % (Auto) % Baso % (Auto) % Immature Gran # (Auto) (0.00-0.02) K/uL Neut # (Auto) (1.4-6.5) K/uL Lymph # (Auto) (1.2-3.4) K/uL [place] # (Auto) (0.11-0.59) K/uL Eos # (Auto) (0-0.5) K/uL Baso # (Auto) (0-0.2) K/uL Hypersegmented Neuts Sodium 139 (136-145) mmol/L Potassium 3.6 (3.5-5.1) mmol/L Chloride 108 H (98-107) mmol/L Carbon Dioxide 25 (21-32) mmol/L Anion Gap 7.0 (3-11) BUN 13 (7-18) mg/dl Creatinine 0.74 (0.6-1.4) mg/dl Est Cr Clr Drug Dosing 134.7 ml/min Est GFR ( Amer) 119.5 Est GFR (Non-Af Amer) 103.1 BUN/Creatinine Ratio 17.6 (10-20) Glucose 202 H (70-99) mg/dl POC Glucose 218 H (70-99) mg/dl Calcium 8.3 L (8.5-10.1) mg/dl Phosphorus 2.4 L (2.5-4.9) mg/dl Magnesium 2.2 (1.8-2.4) mg/dl Total Bilirubin (0.2-1) mg/dl AST (15-37) U/L ALT (12-78) U/L Alkaline Phosphatase (45-117) U/L Total Protein (6.4-8.2) gm/dl Albumin (3.4-5.0) gm/dl Globulin (2.5-4.0) gm/dl Albumin/Globulin Ratio (0.9-2) Lipase (73-393) U/L 05/15/19 05/15/19 05/15/19 Range/Units 06:05 03:52 00:24 WBC (4.8-10.8) K/uL RBC (4.7-6.1) M/uL Hgb (14.0-18.0) g/dL Hct (42-52) % MCV (80-100) fL MCH (25-34) pg MCHC (32-36) g/dL RDW Std Deviation (36.4-46.3) fL RDW Coeff of Chava (11.5-14.5) % Plt Count (130-400) K/uL MPV (7.4-10.4) fL Immature Gran % (Auto) % Neut % (Auto) % Lymph % (Auto) % [place] % (Auto) % Eos % (Auto) % Baso % (Auto) % Immature Gran # (Auto) (0.00-0.02) K/uL Neut # (Auto) (1.4-6.5) K/uL Lymph # (Auto) (1.2-3.4) K/uL [place] # (Auto) (0.11-0.59) K/uL Eos # (Auto) (0-0.5) K/uL Baso # (Auto) (0-0.2) K/uL Hypersegmented Neuts Sodium (136-145) mmol/L Potassium (3.5-5.1) mmol/L Chloride (98-107) mmol/L Carbon Dioxide (21-32) mmol/L Anion Gap (3-11) BUN (7-18) mg/dl Creatinine (0.6-1.4) mg/dl Est Cr Clr Drug Dosing ml/min Est GFR ( Amer) Est GFR (Non-Af Amer) BUN/Creatinine Ratio (10-20) Glucose (70-99) mg/dl POC Glucose 200 H 206 H 254 H (70-99) mg/dl Calcium (8.5-10.1) mg/dl Phosphorus (2.5-4.9) mg/dl Magnesium (1.8-2.4) mg/dl Total Bilirubin (0.2-1) mg/dl AST (15-37) U/L ALT (12-78) U/L Alkaline Phosphatase (45-117) U/L Total Protein (6.4-8.2) gm/dl Albumin (3.4-5.0) gm/dl Globulin (2.5-4.0) gm/dl Albumin/Globulin Ratio (0.9-2) Lipase (73-393) U/L 05/14/19 05/14/19 Range/Units 17:25 17:25 WBC 16.09 H (4.8-10.8) K/uL RBC 4.53 L (4.7-6.1) M/uL Hgb 12.4 L (14.0-18.0) g/dL Hct 37.6 L (42-52) % MCV 83.0 (80-100) fL MCH 27.4 (25-34) pg MCHC 33.0 (32-36) g/dL RDW Std Deviation 42.0 (36.4-46.3) fL RDW Coeff of Chava 14.0 (11.5-14.5) % Plt Count 279 (130-400) K/uL MPV 9.3 (7.4-10.4) fL Immature Gran % (Auto) 6.7 % Neut % (Auto) 83.7 % Lymph % (Auto) 6.2 % [place] % (Auto) 2.3 % Eos % (Auto) 0.9 % Baso % (Auto) 0.2 % Immature Gran # (Auto) 1.08 H (0.00-0.02) K/uL Neut # (Auto) 13.47 H (1.4-6.5) K/uL Lymph # (Auto) 1.00 L (1.2-3.4) K/uL [place] # (Auto) 0.37 (0.11-0.59) K/uL Eos # (Auto) 0.14 (0-0.5) K/uL Baso # (Auto) 0.03 (0-0.2) K/uL Hypersegmented Neuts 1+ Sodium 135 L (136-145) mmol/L Potassium 3.7 (3.5-5.1) mmol/L Chloride 100 (98-107) mmol/L Carbon Dioxide 26 (21-32) mmol/L Anion Gap 9.0 (3-11) BUN 17 (7-18) mg/dl Creatinine 0.82 (0.6-1.4) mg/dl Est Cr Clr Drug Dosing 121.6 ml/min Est GFR ( Amer) 114.6 Est GFR (Non-Af Amer) 98.9 BUN/Creatinine Ratio 20.2 H (10-20) Glucose 263 H (70-99) mg/dl POC Glucose (70-99) mg/dl Calcium 8.6 (8.5-10.1) mg/dl Phosphorus (2.5-4.9) mg/dl Magnesium (1.8-2.4) mg/dl Total Bilirubin 0.6 (0.2-1) mg/dl AST 15 (15-37) U/L ALT 26 (12-78) U/L Alkaline Phosphatase 501 H (45-117) U/L Total Protein 7.2 (6.4-8.2) gm/dl Albumin 2.8 L (3.4-5.0) gm/dl Globulin 4.4 H (2.5-4.0) gm/dl Albumin/Globulin Ratio 0.6 L (0.9-2) Lipase 87 (73-393) U/L PG Care Time/CCT Total # of Minutes Spent Total Time Spent with Patient: Total time spent is greater than 50% in coordination of care (as documented) at patient's floor/unit and/or counseling patient: Coding Level of Care Code 25690 Subseq Hosp Care Lvl 3 Diagnoses Chemotherapy induced nausea and vomiting R11.2; T45.1X5A Malignant neoplasm of pancreas metastatic to liver C25.9; C78.7 Laryngopharyngeal reflux K21.9 Obstructive sleep apnea of adult G47.33 Hyperlipidemia E78.5 Hypertension I10 Diabetes mellitus, type 2 E11.9 Anemia D64.9 Leukocytosis D72.829 Moderate dehydration E86.0
[2019-05-15] MEDS ORDERED: POTASSIUM PHOSPHATE 9 MMOL in SODIUM CHLORIDE 0.9% 250 ML IV ONE (13:30)
--- NOTE | 2019-05-15 14:24 | Electrocardiogram Report ---
Test Reason : Blood Pressure : / mmHG Vent. Rate : 071 BPM Atrial Rate : 071 BPM P-R Int : 162 ms QRS Dur : 082 ms QT Int : 390 ms P-R-T Axes : 046 029 044 degrees QTc Int : 423 ms Normal sinus rhythm Normal ECG When compared with ECG of 08-APR-2019 10:56, Nonspecific T wave abnormality now evident in Inferior leads Confirmed by Leandro Francois ([id number]) on 05/15/2019 2:24:15 PM Referred By: Devyn Larson Confirmed By:Leandro Francois
[2019-05-15] MEDS ORDERED: haloperidoL 1 MG TAB PO PRN (15:13)
--- NOTE | 2019-05-15 15:25 | Palliative Care Consultation ---
Date of Consultation May 15, 2019 Assessment & Plan (1) Palliative care encounter: -Patient is a 58-year-old male with a past medical history significant for stage IV pancreatic carcinoma diagnosed in March 2019. Patient's pancreatic mass was measured at 6 X 3.3 cm and was encasing the splenic artery as well as the vein. He also had several liver mets and retroperitoneal adenopathy. He had a recent history of 20 to 25 pound weight loss. Patient underwent 2 courses of chemo-his last chemo was on 05/08. His reports that he has not done well with chemo-having severe nausea and vomiting as well as dysgeusia. Patient had a repeat CT scan done yesterday-results have not been discussed with the family. Oncology to meet with the patient and family tomorrow. reports patient was not a surgical candidate at the time of diagnosis. Patient and report the pain has not been an issue, he does note occasional discomfort but no overt pain. -Patient's prior medical history is only significant for hypertension, HLD, and diabetes. His reports that sugars on average 200 at home. Per reports that several PRN medications for nausea have been ineffective including Zofran, Phenergan, Compazine. Patient was started on IV Reglan this morning and both patient and report this is the only medication that has helped so far. Patient has also been on PRN Ativan at home and 0.5 mg for anxiety with 1 mg nightly to help with sleep-they have not noted any effect on nausea with Ativan either. Patient does have his medical marijuana card, however has not felt well enough yet to go to the marijuana clinic. reports that per their last discussion with oncology the options were continuing with current chemo at a lower dose or switching to gemcitabine vs option of not pursuing any further chemo. From the discussion with patient's -it seems that patient would want to continue some form of chemo. reports is been difficult to talk about the "elephant in the room" as they have been avoiding direct discussions. Discussed with that in an effort to protect each other from emotional issues, this is common. Encouraged the to speak with her and encouraged him to do what he wants not what he feels the rest of the family wants. CODE STATUS - FULL CODE Will continue to follow and assist patient family with medical decision making. Will give patient information on outpatient palliative care clinic to follow-up if he wishes. (2) Chemotherapy induced nausea and vomiting: Reglan appears to be effective, consider adding PRN Haldol-1 mg tablets can be given sublingual. Would recommend discontinuing Phenergan and Compazine as they are not effective. -Patient has had no significant side effects with prior use of steroids, can consider adding 2 mg of Decadron daily to assist with nausea, will need to monitor blood sugars closely. (3) Pancreatic cancer: Patient had a f/u CT scan-oncology to discuss results with patient and family Pancreatic malignancy location: unspecified Qualified Code(s): C25.9 - Malignant neoplasm of pancreas, unspecified (4) Malignant neoplasm of pancreas metastatic to liver: Innumerable liver mets (5) Diabetes mellitus, type 2: Blood sugars average around 200 per -discussed different dietary supplements that patient can tolerate. History of Present Illness Reason for Consultation: Assist with symptom management as well as establish goals of care Requesting Physician: Dr. Chowdhury Attending Physician: Rl Escalona DO History of Present Illness Chart reviewed, patient seen and examined. Collaborated with Petty Arenas PA-C Met with patient's and son Donavon. -Patient is a 58-year-old male with a past medical history significant for stage IV pancreatic carcinoma diagnosed in March 2019. Patient's pancreatic mass was measured at 6 X 3.3 cm and was encasing the splenic artery as well as the vein. He also had several liver mets and retroperitoneal adenopathy. He had a recent history of 20 to 25 pound weight loss. Patient underwent 2 courses of chemo-his last chemo was on 05/08. His reports that he has not done well with chemo-having severe nausea and vomiting as well as dysgeusia. Patient had a repeat CT scan done yesterday-results have not been discussed with the family. Oncology to meet with the patient and family tomorrow. reports patient was not a surgical candidate at the time of diagnosis. Patient and report the pain has not been an issue, he does note occasional discomfort but no overt pain. -Patient's prior medical history is only significant for hypertension, HLD, and diabetes. His reports that sugars on average 200 at home. Per reports that several PRN medications for nausea have been ineffective including Zofran, Phenergan, Compazine. Patient was started on IV Reglan this morning and both patient and report this is the only medication that has helped so far. Patient has also been on PRN Ativan at home and 0.5 mg for anxiety with 1 mg nightly to help with sleep-they have not noted any effect on nausea with Ativan either. Patient does have his medical marijuana card, however has not felt well enough yet to go to the marijuana clinic. reports that per their last discussion with oncology the options were continuing with current chemo at a lower dose or switching to gemcitabine vs option of not pursuing any further chemo. From the discussion with patient's -it seems that patient would want to continue some form of chemo. reports is been difficult to talk about the "elephant in the room" as they have been avoiding direct discussions. Discussed with that in an effort to protect each other from emotional issues, this is common. Encouraged the to speak with her and encouraged him to do what he wants not what he feels the rest of the family wants. Patient and have been for 31 years, they have 3 children-their oldest daughter Fauzia lives locally, youngest son Donavon also lives locally, their middle son lives in [place]. Allergies Allergy/AdvReac Type Severity Reaction Status Date / Time lisinopril Allergy Unknown Cough Verified 05/14/19 20:52 Home Medications Home Medications Medication Instructions Recorded Confirmed Type atenolol 50 mg tablet 50 mg PO HS tab 12/16/18 05/14/19 History [place]-3 1 cap PO QAM 02/13/19 05/14/19 History aspirin 81 mg PO HS 02/13/19 05/14/19 History atorvastatin 20 mg PO QAM 02/13/19 05/14/19 History cetirizine [24Hour Allergy] 10 mg PO QAM 02/13/19 05/14/19 History losartan [Cozaar] 25 mg PO QAM 02/13/19 05/14/19 History multivitamin 1 tab PO QAM 02/13/19 05/14/19 History ibuprofen 600 - 800 mg PO BID PRN 03/31/19 05/14/19 History ascorbic acid (vitamin C) 500 mg 500 mg PO QAM 04/08/19 05/14/19 History capsule cholecalciferol (vitamin D3) 4,000 4,000 units PO DAILY 04/08/19 05/14/19 History unit capsule lactobacillus combination no.9 4 4,000 mmu cells PO DAILY 04/08/19 05/14/19 History billion cell capsule metformin 500 mg tablet 1,000 mg PO BID tab 04/08/19 05/14/19 History Juice Plus 1 dose PO DAILY 04/11/19 05/14/19 History acetaminophen [Tylenol Extra 1,000 mg PO Q6H PRN 04/16/19 05/14/19 History Strength] dronabinol [Marinol] 2.5 mg PO BID PRN 05/14/19 05/14/19 History lorazepam [Ativan] 0.5 mg PO Q4 PRN 05/14/19 05/14/19 History ondansetron HCl [Zofran] 8 mg PO Q8 PRN 05/14/19 05/14/19 History prochlorperazine maleate 10 mg PO Q6 PRN 05/14/19 05/14/19 History [Compazine] promethazine 25 mg [place] Q6H PRN #12 ea 05/14/19 Rx sertraline 50 mg PO DAILY 05/14/19 05/14/19 History Patient History Medical History Diabetes mellitus, type 2 NIDDM Fatty liver Hx of cardiac murmur no murmur noted per anesthesia evaluation 02/14/19 ([facility]) Hyperlipidemia Hypertension Malignant neoplasm of pancreas metastatic to liver Morbid obesity Pancreatic cancer (Acute) Port-A-Cath in place (04/16/19) Insertion of Mediport into Left Internal Jugular with Fluoroscopy Dr. Estrada 04/16/19 Sleep apnea CPAP Surgical History History of tonsillectomy History of tooth extraction Hx of biopsy PANCREAS Strabismus REPAIR Family History Father Family history of diabetes mellitus Diabetes Mother Breast cancer Social History Preferred Language: Faroese Communication Ability: Effective Coil Winder Hand Required: No Beliefs That Will Affect Care: None marital status: Current Living Situation: Spouse Feels Safe at Home: Yes Smoking Status: Never smoker Do You Dip or Chew Tobacco: No ; Second Hand Exposure: No ; Hx Alcohol Use: No Hx Substance Use: No Review of Systems Review of Systems: Limited ROS due to to patient's nausea. Patient denied pain on exam, did report that nausea control has improved. Physical Exam Physical Exam: PE: Arousable, appears comfortable at rest HEENT: EOMI, hearing within normal limits Respiratory: Clear breath sounds bilaterally CV: Regular rate, no edema Abdomen: Soft, nontender to light palpation Extremities: Full range of motion neuro : Alert and oriented x4 Results & Data Vital Signs (Past 12 Hours) Vital Signs Temp Pulse Resp BP Pulse Ox 05/15/19 12:01 98.2 F 80 16 142/81 H 95 05/15/19 07:18 98.8 F 73 18 130/78 97 PG Care Time/CCT Total # of Minutes Spent Total Time Spent with Patient: Total time spent is greater than 50% in coordination of care (as documented) at patient's floor/unit and/or counseling patient: Prolonged Care Time Prolonged Care Time: Yes Total Prolonged Care Time: 35 Coding Level of Care Code 57450 Inpt Consult Level 3 Diagnoses Palliative care encounter Z51.5 Chemotherapy induced nausea and vomiting R11.2; T45.1X5A Pancreatic cancer C25.9 Pancreatic malignancy location: unspecified Malignant neoplasm of pancreas metastatic to liver C25.9; C78.7 Diabetes mellitus, type 2 E11.9 Additional Codes Prolonged Care Time - Prolonged Care Time: Yes ([id number]) Time Spent (min) 105 Critical Care Time Prolonged Care Time Prolonged Care Time: Yes Total Prolonged Care Time: 35 105 Time Spent Attending Total time spent 105 minutes with greater than 50% of the time spent at bedside discussing patient's current prognosis, treatment options and goals of care. Provided support to and son.
[2019-05-15] MEDS: METOCLOPRAMIDE HCL INJ 5 MG/ML 2 ML VIAL IV SCH ×2 (15:50→22:21)
[2019-05-15] MEDS: LORazepam 0.5 MG TAB PO PRN (17:06)
[2019-05-15] MEDS ORDERED: LORazepam 0.5 MG TAB PO STA (21:30)
[2019-05-16] MEDS: METOCLOPRAMIDE HCL INJ 5 MG/ML 2 ML VIAL IV SCH (05:14)
[2019-05-16 05:46] LABS: Hematocrit (blood only) 34.7 % (42-52); Hemoglobin 11.5 g/dL (14.0-18.0); Mean Corpuscular Hemoglobin 27.4 pg (25-34); Mean Corpuscular Hgb Conc 33.1 g/dL (32-36); Mean Corpuscular Volume 82.8 fL (80-100); Mean Platelet Volume 8.9 fL (7.4-10.4); Platelet Count 226 K/uL (130-400); RDW Standard Deviation 42.1 fL (36.4-46.3); Red Blood Count 4.19 M/uL (4.7-6.1); White Blood Count 17.83 K/uL (4.8-10.8)
[2019-05-16 05:55] LABS: Estimated Average Glucose 212 mg/dl
[2019-05-16] MEDS: NSS + 20MEQ KCL 20 MEQ/1,000 ML BAG IV SCH (06:13)
[2019-05-16 06:23] LABS: BUN Creatinine Ratio 10.4 (10-20); Calcium 8.4 mg/dl (8.5-10.1); Creatinine Clr Calc Pharmacy 129.5 ml/min; Est GFR (African American) 117.6; Est GFR (Non-African American) 101.4; Magnesium 2.2 mg/dl (1.8-2.4); Potassium 3.8 mmol/L (3.5-5.1)
[2019-05-16] MEDS ORDERED: INSULIN ASPART 100 UNITS/ML 3 ML PEN SC SCH (07:30)
[2019-05-16] MEDS: LORazepam 0.5 MG TAB PO PRN (07:51)
[2019-05-16] MEDS: ENOXAPARIN INJ 40 MG/0.4 ML SYR SQ SCH (07:55)
[2019-05-16] MEDS: FAMOTIDINE 20 MG in SYRINGE 3 ML IV SCH (07:55)
[2019-05-16 08:59] LABS: Appearance Urine Clear (Clear); Bilirubin Urine Negative (Negative); Blood Urine Negative (Negative); Color Urine Dark Yellow; Glucose Urine UA Negative (Negative); Ketones Urine Trace (Negative); Leukocyte Esterase Urine Negative (Negative); Nitrite Urine Negative (Negative); Protein Urine Negative (Negative); Specific Gravity Urine 1.021 (1.000-1.030); Urobilinogen Urine Negative (Negative); pH Urine 5.5 (4.5-7.5)
[2019-05-16] MEDS ORDERED: SERTRALINE HCL 50 MG TABLET PO SCH (09:00)
[2019-05-16] MEDS ORDERED: ASPIRIN 81 MG ECTAB PO SCH (09:00)
[2019-05-16] MEDS ORDERED: LOSARTAN POTASSIUM 25 MG TAB PO SCH (09:00)
[2019-05-16] MEDS ORDERED: ATORVASTATIN 20 MG TAB PO SCH (09:00)
[2019-05-16] MEDS: INSULIN ASPART 100 UNITS/ML 3 ML PEN SC SCH ×2 (09:14→12:02)
[2019-05-16] MEDS ORDERED: METOCLOPRAMIDE HCL 10 MG TABLET PO SCH (12:00)
--- NOTE | 2019-05-16 13:27 | Discharge Summary ---
Date of Service May 16, 2019 Admission HPI Per Admitting Provider The patient is a 58-year-old male with a past medical history of metastatic pancreatic cancer to liver, presently undergoing chemotherapy, who is now been able to hold anything down for the past 2 days. He did receive IV fluids 2 days ago at the cancer center. He reports his mouth is very dry, and is unable to tolerate his oral medications or sips of water. Admission Exam Per Admitting Provider The patient is awake, alert and oriented 3, looks very fatigued, normocephalic and atraumatic, lying in bed and in no acute distress. HEENT--PERRL, EOMI, mucous membranes and oropharynx very dry. Neck--supple. No JVD. No bruits. Thyroid normal, trachea midline, no adenopathy. Heart--normal S1 and S2. No murmurs, rubs or gallops. Lungs--clear bilaterally, no respiratory distress, no accessory muscle use. Abdomen--decreased bowel sounds and soft. Nontender. Nondistended. Obese. Extremities--no cyanosis or clubbing. No edema. Dermatologic--skin is dry, no rashes. Neurologic--cranial nerves II through XII grossly intact. Rheumatologic--normal range of motion. Psychiatric--depressed Principal Diagnosis Chemotherapy induced nausea/vomiting/diarrhea Discharge Exam General: Resting comfortably, no acute distress. is present at bedside. HEENT: NC/AT; PERRLA with EOMI; [place] conjunctiva, MMM. No erythema of posterior pharynx Neck: Supple and nontender Cardiac: RRR Lungs: CTA bilaterally Abdomen: Bowel normoactive X 4; Nontender to palpation Extremities: Warm. No edema present Neuro: No focal weakness Skin: No rash Discharge Data Allergies Allergy/AdvReac Type Severity Reaction Status Date / Time lisinopril Allergy Unknown Cough Verified 05/14/19 20:52 Consultations 05/14/19 21:47 ED Decision to Admit Stat 05/14/19 23:55 Consult Palliative Care Routine 05/15/19 00:12 Consult Case Management - Discharge Planning Routine Consult Hematology Routine Ordered Studies 05/14/19 23:00 CT abd pelvis wo con Urgent Hospital Course (1) Chemotherapy induced nausea and vomiting: Chemotherapy induced N/V in setting of metastatic disease. CT A/P showed progression of metastatic disease compared to Mar 2019 including hepatic, small pulm, garrett and omental implants. No evidence of bowel obstruction. Poor response to Zofran; started Reglan 10 mg IV q6hr scheduled with great improvement in N/V. Will d/c on Reglan 10 mg PO TID scheduled x 3 days then convert to prn dosing. Tolerating CLD prior to discharge. Oncology consulted, may require transition to different chemo regimen once he stabilizes. Recommend close follow up with oncology to discuss further treatment, appt requested. Palliative care consulted, appreciate input. (2) Malignant neoplasm of pancreas metastatic to liver: CT A/P showed progression of disease. Initially diagnosed in Mar 2019; started FOLFIRINOX, last dose on 05/08/19. Oncology following, may require dose reduction in next cycle of chemo vs. trans itioning to Gemcitabine/Abraxane therapy. CA 19-9 level is pending. (3) Laryngopharyngeal reflux: Pepcid q12hr as inpatient. (4) Obstructive sleep apnea of adult: Avoid CPAP mask in setting of N/V. Can resume at home. (5) Hyperlipidemia: Resumed statin. (6) Hypertension: Resumed home Losartan, Atenolol. (7) Diabetes mellitus, type 2: Hgb A1C is 9.0. SSI as inpatient. Resume home Metformin at discharge; avoided adding additional agent due to concern for poor PO intake at home, increased risk of hypoglycemia. Recommended to apply glucose monitor -- was prescribed by Dr. Wood. F/u with PCP to discuss blood glucose management. (8) Anemia: Chemo induced anemia in setting of FOLFIRINOX therapy. (9) Leukocytosis: WBC currently elevated in setting of recent Neulasta injection and IV steroids for pre-medication. Recent u/a on 05/12: >30 WBC, +1 bacteria. UC was negative. CXR was negative for PNA. (10) Moderate dehydration: Received IV fluids at 150 cc/hr. Discharged to home on 05/16/19. Total Time Total Time Spent Total Time Spent (In Minutes): >30 minutes Total Time Includes: Examination of the Patient, Discharge Planning, Medication Reconciliation, Communication With Other Providers and Other Discharge Plan Discharge Items Patient Disposition: Home - Self-Care Reason For Visit: INTRACTABLE N/V, MET PANCREATIC CA Discharge Diagnosis: Chemotherapy induced nausea/vomiting, diarrhea Condition on Discharge: Fair Goals: You have been hospitalized for an acute medical problem. During your stay at [facility], we have made an effort to correct the problem that brought you to the hospital while keeping you as comfortable as possible. Medications were used to bring your condition under control and your discharge instructions will include directions for any medications you should take after leaving the hospital. Please make sure you see your Primary Care Provider as part of your follow up plan. Activity: As commented below Exercise/Sports: Gradually increase as tolerated Non-emergency contact: Primary Care Provider and Oncologist Call non-emergency contact if: you have any medication questions, your symptoms worsen and you have a fever Follow-up/Referrals: Jaime Jc DO [Family Provider] - 05/22/19 8:30 am (You are also scheduled for a port draw on May 21, at 10:45. If you are unable to keep either appointment, please call the office at [phone] to reschedule.) Georges Licea MD [Primary Care Provider] - 05/16/19 11:40 am Diet: Carb Consistent or DM2 Addtl Attending Provider Instructions: 1. Chemotherapy induced nausea/vomiting * Please take Reglan 10 mg every 8 hours scheduled over the weekend then convert medication to as needed every 8 hours for nausea/vomiting. * You will need to follow up with Dr. Jc in the outpatient clinic to discuss dose reduction during next cycle versus converting to another chemotherapy regimen. 2. Diabetes Mellitus Type II * Hemoglobin A1C was 9 during this admission. * Please continue carbohydrate consistent diet at home. * Please continue Metformin 1,000 mg twice daily. * Please use continuous blood glucose monitor at home as prescribed by Dr. Wood; you may require an additional oral agent vs. insulin therapy if blood glucose does not improve. Pending Studies at Discharge: No Stand-Alone Forms: My [facility] Medications and DC Order Prescriptions: New metoclopramide HCl 10 mg Tablet 10 mg PO Q8H 10 Days Qty: 30 RF: 0 Continued atenolol 50 mg tablet 50 mg PO HS RF: 0 ascorbic acid (vitamin C) 500 mg capsule 500 mg PO QAM RF: 0 cholecalciferol (vitamin D3) 4,000 unit capsule 4,000 units PO DAILY RF: 0 Adult 50 Plus Probiotic 4 billion cell capsule 4,000 mmu cells PO DAILY RF: 0 multivitamin Tablet 1 tab PO QAM RF: 0 atorvastatin 20 mg Tablet 20 mg PO QAM RF: 0 cetirizine [24Hour Allergy] 10 mg Tablet 10 mg PO QAM RF: 0 aspirin 81 mg Tablet,Delayed Release (Dr/Ec) 81 mg PO HS RF: 0 losartan [Cozaar] 25 mg Tablet 25 mg PO QAM RF: 0 [place]-3 350 mg-235 mg- 90 mg-597 mg Capsule,Delayed Release(Dr/Ec) 1 cap PO QAM RF: 0 dronabinol [Marinol] 2.5 mg capsule 2.5 mg PO BID PRN (Reason: Pain) RF: 0 lorazepam [Ativan] 0.5 mg tablet 0.5 mg PO Q4 PRN (Reason: Anxiety) RF: 0 sertraline 50 mg tablet 50 mg PO DAILY RF: 0 ibuprofen 200 mg Capsule 600 - 800 mg PO BID PRN (Reason: Pain) RF: 0 metformin 500 mg tablet 1,000 mg PO BID RF: 0 Juice Plus 1 dose PO DAILY RF: 0 acetaminophen [Tylenol Extra Strength] 500 mg Tablet 1,000 mg PO Q6H PRN (Reason: Pain) RF: 0 Discontinued ondansetron HCl [Zofran] 8 mg tablet 8 mg PO Q8 PRN (Reason: Nausea) RF: 0 prochlorperazine maleate [Compazine] 10 mg tablet 10 mg PO Q6 PRN (Reason: Nausea) RF: 0 Discharge Orders: Discharge Order (Routine); Ordered 05/16/19 Ordered By: Petty Morillo/Other Patient Handouts: Hyperglycemia, Hypoglycemia, Diabetes Resources, Blood Sugar Check, Diabetes Manage A1C Test Admission Data Admit Date/Time: 05/15/19 12:14 Attending Provider: Rl Escalona Admit Provider: Hal Chowdhury Primary Care Provider: Georges Licea Other Providers: Hal Chowdhury ; Anitha Tran ; Jaime Jc V Other Interventions: Discharge Summary Assessment (RN) Last Done: 05/16/19 10:37 Supervising Physician Co-Signing Physician Notes Patient seen and examined on the day of discharge. I agree with the discharge summary by Petty ELDER. I have reviewed the chart including labs, imaging and plans for discharge. patient feeling better, less nausea, able to keep some food down transitioned to PO Reglan with good response discussed leukocytosis, likely due to Neulasta on Friday 05/12 will follow up closely with Dr. Jc next week - Pancreatic cancer with mets to liver, worsening on most recent CT no response to FOLFIRINOX will follow up with Dr. Jc next week to determine what treatment would be offered next treating nausea with RegGenaro chavez patient feels ready for discharge today Coding Level of Care Code D/C Day Management >30 mins Diagnoses Chemotherapy induced nausea and vomiting R11.2; T45.1X5A Malignant neoplasm of pancreas metastatic to liver C25.9; C78.7 Laryngopharyngeal reflux K21.9 Obstructive sleep apnea of adult G47.33 Hyperlipidemia E78.5 Hypertension I10 Diabetes mellitus, type 2 E11.9 Anemia D64.9 Leukocytosis D72.829 Moderate dehydration E86.0
--- NOTE | 2019-05-16 16:31 | Palliative Care Progress Note ---
Date of Service May 16, 2019 Assessment & Plan (1) Palliative care encounter: -Patient is a 58-year-old male with a past medical history significant for stage IV pancreatic carcinoma diagnosed in March 2019. Patient's pancreatic mass was measured at 6 X 3.3 cm and was encasing the splenic artery as well as the vein. He also had several liver mets and retroperitoneal adenopathy. He had a recent history of 20 to 25 pound weight loss. Patient underwent 2 courses of chemo-his last chemo was on 05/08. His reports that he has not done well with chemo-having severe nausea and vomiting as well as dysgeusia. Patient had a repeat CT scan done yesterday-results have not been discussed with the family. was able to access CT results-understands that disease has progressed, will likely not share information with the patient at this time. Will allow oncology to present information and options at follow-up appointment next week. reports patient was not a surgical candidate at the time of diagnosis. Patient and report the pain has not been an issue, he does note occasional discomfort but no overt pain. -Patient's prior medical history is only significant for hypertension, HLD, and diabetes. Per reported that several PRN medications for nausea have been ineffective including Zofran, Phenergan, Compazine. Patient was started on IV Reglan this morning and both patient and report this is the only medication that has helped so far. Patient has also been on PRN Ativan at home and 0.5 mg for anxiety with 1 mg nightly to help with sleep-they have not noted any effect on nausea with Ativan either. Patient does have his medical marijuana card, however has not felt well enough yet to go to the marijuana clinic. reported that per their last discussion with oncology the options were continuing with current chemo at a lower dose or switching to gemcitabine vs option of not pursuing any further chemo. From the discussion with patient's -it seems that patient would want to continue some form of chemo. reported is been difficult to talk about the "elephant in the room" as they have been avoiding direct discussions -spoke with patient privately regarding using written communication if verbal communication is too emotionally difficult. Discussed with that in an effort to protect each other from emotional issues, this is common. Discussed with patient-the family's prior stated wishes that he choose treatments that he would want, not what he thinks the family would want-patient replied "that is difficult to do". CODE STATUS - FULL CODE Will continue to follow and assist patient family with medical decision making. given information on outpatient palliative care clinic to follow-up if he wishes. (2) Chemotherapy induced nausea and vomiting: Reglan appears to be effective, consider adding PRN Haldol-1 mg tablets can be given sublingual. -Patient has had no significant side effects with prior use of steroids, can consider adding 2 mg of Decadron daily to assist with nausea, will need to monitor blood sugars closely. (3) Pancreatic cancer: Patient had a f/u CT scan-oncology to discuss results with patient and family (4) Malignant neoplasm of pancreas metastatic to liver: Innumerable liver mets (5) Diabetes mellitus, type 2: Blood sugars average around 200 per -discussed different dietary supplements that patient can tolerate. Subjective Patient seen and examined, not at bedside. Patient is in the process of being discharged- left to get the car. Patient awake and alert, no acute distress. Nausea and vomiting well controlled with Reglan Patient is for discharge home with follow-up with oncology next week. Was able to speak with the briefly in follow-up from her conversations yesterday. Review of Systems Review of Systems: Patient denies fever, chills, chest pain, nausea, vomiting, shortness of breath, or abdominal pain Physical Exam Physical Exam: PE: No acute distress HEENT: EOMI, hearing within normal limits Respirations: Unlabored CV: Regular rate, no edema Abdomen: Soft, not tender Extremities: Full range of motion Neuro: Alert and oriented x4 Psych: Depressed mood Results & Data Vital Signs (Past 12 Hours) Vital Signs Temp Pulse Resp BP Pulse Ox 05/16/19 10:37 97.9 F 70 22 142/88 H 96 05/16/19 08:21 97.9 F 70 22 142/88 H 96 PG Care Time/CCT Total # of Minutes Spent Total Time Spent with Patient: Total time spent 35 min with greater than 50% of the time spent at bedside discussing goals of care. Coding Level of Care Code 95066 Subseq Hosp Care Lvl 3 Diagnoses Palliative care encounter Z51.5 Chemotherapy induced nausea and vomiting R11.2; T45.1X5A Pancreatic cancer C25.9 Pancreatic malignancy location: unspecified Malignant neoplasm of pancreas metastatic to liver C25.9; C78.7 Diabetes mellitus, type 2 E11.9 Time Spent (min) 35 (1) Pancreatic cancer Pancreatic malignancy location: unspecified Qualified Code(s): C25.9 - Malignant neoplasm of pancreas, unspecified
[2019-05-16] MEDS ORDERED: ATENOLOL 50 MG TABLET PO SCH (21:00)
== END 2019-05-16 14:27 | disposition home or self-care (01) | DRG 392 ==
LOC: ED 18:39 → 4W 18:39 → SUATTDRO 22:58 → 4W 23:33

== ENCOUNTER 2019-06-02 14:40 | Observation (INO) ==
[2019-06-02] MEDS ORDERED: METOCLOPRAMIDE HCL INJ 5 MG/ML 2 ML VIAL IV STA (15:09)
[2019-06-02] MEDS ORDERED: LORazepam 0.5 MG/1 ML VIAL IV STA (15:09)
--- NOTE | 2019-06-02 15:15 | Emergency Department Note ---
History of Present Illness General Chief complaint: Vomiting Stated complaint: PANCREATIC CANCER, VOMITING Time Seen by Provider: 06/02/19 14:59 History of Present Illness Maximum Pain Intensity: 6 This is a 58-year-old male presenting to the emergency department for evaluation of nausea and vomiting for the past 1 day. The patient has a relatively new diagnosis of pancreatic cancer with metastasis. He did receive 2 rounds of chemotherapy 1 month ago, but nothing this month. The patient was doing fairly well until yesterday, he has had 5 episodes of emesis since since then. He is initially able to keep small amounts of water down, but shortly after will vomit. He has not had fevers or chills. No chest pain, chest tightness, shortness of breath, or abdominal pain. He was able to urinate today but feels very dehydrated. He did take Reglan approximately 8 hours ago which minimally improved his symptoms. Other antiemetics seem to do very poorly for him. He rates his current discomfort a 6/10. Home Medications Home Medications Medication Instructions Recorded Confirmed Type atenolol 50 mg tablet 50 mg PO HS tab 12/16/18 06/02/19 History aspirin 81 mg PO HS 02/13/19 06/02/19 History atorvastatin 20 mg PO QAM 02/13/19 06/02/19 History cetirizine [24Hour Allergy] 10 mg PO QAM 02/13/19 06/02/19 History losartan [Cozaar] 25 mg PO QAM 02/13/19 06/02/19 History multivitamin 1 tab PO QAM 02/13/19 06/02/19 History ibuprofen 600 - 800 mg PO BID PRN 03/31/19 06/02/19 History metformin 500 mg tablet 1,000 mg PO DAILY tab 04/08/19 06/02/19 History acetaminophen [Tylenol Extra 1,000 mg PO Q6H PRN 04/16/19 06/02/19 History Strength] lorazepam [Ativan] 0.5 mg PO Q4 PRN 05/14/19 06/02/19 History sertraline 50 mg PO DAILY 05/14/19 06/02/19 History metoclopramide HCl 10 mg PO Q8H PRN 06/02/19 06/02/19 History prochlorperazine maleate 10 mg PO Q6H PRN 06/02/19 06/02/19 History Allergies Allergy/AdvReac Type Severity Reaction Status Date / Time lisinopril Allergy Unknown Cough Verified 06/02/19 17:23 Past Med/Surg History Medical History Diabetes mellitus, type 2 NIDDM Fatty liver Hx of cardiac murmur no murmur noted per anesthesia evaluation 02/14/19 ([facility]) Hyperlipidemia Hypertension Malignant neoplasm of pancreas metastatic to liver Morbid obesity Pancreatic cancer (Acute) Port-A-Cath in place (04/16/19) Insertion of Mediport into Left Internal Jugular with Fluoroscopy Dr. Gia marquez 04/16/19 Sleep apnea CPAP Surgical History History of tonsillectomy History of tooth extraction Hx of biopsy PANCREAS Strabismus REPAIR Social History Preferred Language: Cymraes Communication Ability: Effective Manager Immunology Required: No Beliefs That Will Affect Care: None marital status: Current Living Situation: Spouse Other Information That Helps Us Care for You: No Feels Safe at Home: Yes Safety Concerns: Feels Safe At This Time Smoking Status: Never smoker Second Hand Exposure: No ; Hx Alcohol Use: No Hx Substance Use: No Review of Systems A total of 10 systems reviewed and were otherwise negative Physical Exam Vital Signs Vital Signs - 24 hr 06/02/19 17:00 06/02/19 19:00 Pulse Rate [Finger] 93 H Pulse Rhythm [Finger] Regular Pulse Strength [Finger] Normal Respiratory Rate 20 20 Respiratory Effort / Characteristics Non-Labored Spontaneous Non-Labored Spontaneous Respiratory Depth Normal Normal Respiratory Pattern Regular Blood Pressure [Left Arm] 117/66 Blood Pressure Mean [Left Arm] 83 Blood Pressure Position [Left Arm] Lying Pulse Oximetry 96 Oxygen Delivery Method Room Air Room Air VITALS: Vitals are noted on the nurse's note and reviewed by myself. Vital signs stable. GENERAL: Pale appearing male who is cooperative with the examination HEAD: Normocephalic atraumatic. MOUTH: Mucous membranes dry NECK: Supple without nuchal rigidity. No lymphadenopathy. No thyromegaly. Cervical spine is nontender. HEART: Regular rate and rhythm without murmurs gallops or rubs. LUNGS: Clear to auscultation bilaterally without wheezes, rales or rhonchi. No retractions or accessory muscle use. ABDOMEN: Positive normal bowel sounds x 4. Soft, nontender, without masses or organomegaly. No guarding or rebound tenderness. MUSCULOSKELETAL: No muscle atrophy, erythema, or edema noted. Full range of motion in all extremities. NEURO: Patient was alert and oriented to person place and time. CN II through XII grossly intact. Course Administered Medications Aspirin (Ecotrin Ectab) 81 mg PO HS [facility] Stop: 07/02/19 22:19 Last Admin: 06/02/19 23:51 Dose: Not Given Documented by: [id number] Atenolol (Tenormin) 50 mg PO HS [facility] Stop: 07/02/19 22:19 Last Admin: 06/02/19 23:52 Dose: Not Given Documented by: [id number] Atorvastatin Calcium [facility]) [facility] [place] [facility]: 07/03/19 08:59 Last Admin: 06/03/19 13:24 Dose: Not Given Documented by: [id number] Cetirizine HCl (Zyrtec) [facility] [place] Stop: 07/03/19 08:59 Last Admin: 06/03/19 10:13 Dose: Not Given Documented by: [id number] Dexamethasone (Decadron) 4 mg PO BID [facility] Stop: 07/03/19 09:29 Last Admin: 06/03/19 10:38 Dose: Not Given Documented by: [id number] Heparin Sodium (Porcine) (Heparin Sodium (Porcine)) 5,000 units SQ Q8 [facility] Stop: 07/02/19 22:19 Last Admin: 06/03/19 12:52 Dose: Not Given Documented by: [id number] Admin: 06/03/19 05:51 Dose: Not Given Documented by: [id number] Admin: 06/02/19 23:51 Dose: Not Given Documented by: [id number] Ondansetron HCl 6 mg/ Dextrose 53 mls @ 200 mls/hr IV Q6H PRN PRN Reason: Nausea And Vomiting Stop: 07/02/19 22:19 Last Admin: 06/03/19 14:38 Dose: 200 mls/hr Documented by: [id number] Infusion: 06/03/19 08:55 Dose: 0 mls/hr Documented by: [id number] Admin: 06/03/19 08:39 Dose: 200 mls/hr Documented by: [id number] Infusion: 06/03/19 02:12 Dose: 0 mls/hr Documented by: [id number] Admin: 06/03/19 00:56 Dose: 200 mls/hr Documented by: [id number] Sodium Chloride (Nss 1000ml) 1,000 mls @ 100 mls/hr IV .Q10H [facility] Stop: 07/02/19 22:19 Last Admin: 06/03/19 10:27 Dose: 100 mls/hr Documented by: [id number] Infusion: 06/03/19 09:35 Dose: 100 mls/hr Documented by: [id number] Admin: 06/02/19 23:35 Dose: 100 mls/hr Documented by: [id number] Acetaminophen (Ofirmev) 1,000 mg in 100 mls @ 400 mls/hr IV Q8H PRN PRN Reason: Pain Stop: 06/06/19 01:11 Last Infusion: 06/03/19 10:40 Dose: 0 mls/hr Documented by: [id number] Admin: 06/03/19 10:24 Dose: 400 mls/hr Documented by: [id number] Infusion: 06/03/19 02:03 Dose: 0 mls/hr Documented by: [id number] Admin: 06/03/19 01:38 Dose: 400 mls/hr Documented by: [id number] Promethazine HCl 12.5 mg/ (Sodium Chloride) 50.5 mls @ 202 mls/hr IV Q6H PRN PRN Reason: Nausea And Vomiting Stop: 07/03/19 02:17 Last Infusion: 06/03/19 11:53 Dose: 0 mls/hr Documented by: [id number] Admin: 06/03/19 11:38 Dose: 202 mls/hr Documented by: [id number] Infusion: 06/03/19 06:22 Dose: 0 mls/hr Documented by: [id number] Admin: 06/03/19 05:51 Dose: 202 mls/hr Documented by: [id number] Lorazepam (Ativan) 0.5 mg in 1 mls @ 1 mls/min IV Q2H PRN PRN Reason: Nausea And Vomiting Stop: 07/03/19 10:26 Last Admin: 06/03/19 13:07 Dose: 1 mls/min Documented by: [id number] Admin: 06/03/19 10:55 Dose: 1 mls/min Documented by: [id number] Dexamethasone Sodium Phosphate (4 mg/ Syringe) 1 mls @ 1 mls/min IV BID [facility] Stop: 07/03/19 10:59 Last Admin: 06/03/19 10:56 Dose: 1 mls/min Documented by: [id number] Ceftriaxone Sodium 2,000 mg/ (Dextrose) 70 mls @ 100 mls/hr IV Q24H [facility]; Protocol Stop: 06/08/19 11:59 Last Infusion: 06/03/19 13:24 Dose: 0 mls/hr Documented by: [id number] Admin: 06/03/19 12:29 Dose: 100 mls/hr Documented by: [id number] Famotidine 20 mg/ Syringe 5 mls @ 2.5 mls/min IV BID [facility] Stop: 07/03/19 11:29 Last Admin: 06/03/19 12:29 Dose: 2.5 mls/min Documented by: [id number] Insulin Aspart (Novolog Flexpen) 0 units SC ACHS [facility] Stop: 07/02/19 22:19 Last Admin: 06/03/19 12:52 Dose: Not Given Documented by: [id number] Cosigned by: [id number] Admin: 06/03/19 08:13 Dose: Not Given Documented by: [id number] Cosigned by: [id number] Admin: 06/02/19 23:51 Dose: Not Given Documented by: [id number] Cosigned by: [id number] Lidocaine (Lidoderm 5%) [facility] patch [facility] [place] Stop: 07/03/19 08:59 Last Admin: 06/03/19 08:45 Dose: 1 patch Documented by: [id number] Lorazepam (Ativan) 0.5 mg PO Q4 PRN PRN Reason: Anxiety Stop: 07/02/19 22:19 Last Admin: 06/03/19 07:01 Dose: 0.5 mg Documented by: [id number] Admin: 06/03/19 01:38 Dose: 0.5 mg Documented by: [id number] Losartan Potassium (Cozaar) 25 mg PO QAM [facility] Stop: 07/03/19 08:59 Last Admin: 06/03/19 13:24 Dose: Not Given Documented by: [id number] Magnesium Chloride (Slow-Mag) 64 mg PO M [facility] Stop: 07/03/19 08:59 Last Admin: 06/03/19 10:12 Dose: Not Given Documented by: [id number] Metoclopramide HCl (Reglan) 10 mg IV Q8 [facility] Stop: 07/02/19 22:59 Last Admin: 06/03/19 13:36 Dose: 10 mg Documented by: [id number] Admin: 06/03/19 05:54 Dose: 10 mg Documented by: [id number] Admin: 06/02/19 23:26 Dose: 10 mg Documented by: [id number] Multivitamins (Multivitamin Tab) 1 tab PO QAM [facility] Stop: 07/03/19 08:59 Last Admin: 06/03/19 10:12 Dose: Not Given Documented by: [id number] Nystatin (Mycostatin) 10 ml PO QID [facility] Stop: 06/13/19 08:59 Last Admin: 06/03/19 12:30 Dose: Not Given Documented by: [id number] Admin: 06/03/19 08:49 Dose: Not Given Documented by: [id number] Sertraline HCl (Zoloft) 50 mg PO DAILY [facility] Stop: 07/03/19 08:59 Last Admin: 06/03/19 10:12 Dose: Not Given Documented by: [id number] Discontinued Medications Diphenhydramine HCl (Benadryl) 12.5 mg IV NOW STA Stop: 06/02/19 16:52 Last Admin: 06/02/19 17:04 Dose: 12.5 mg Documented by: [id number] Haloperidol Lactate (Haldol) 1 mg IV NOW STA Stop: 06/02/19 16:52 Last Admin: 06/02/19 17:05 Dose: 1 mg Documented by: [id number] Sodium Chloride (Nss 1000ml) 1,000 mls @ 999 mls/hr IV .Q1H1M [facility] Stop: 06/02/19 17:09 Last Infusion: 06/02/19 17:34 Dose: 0 mls/hr Documented by: [id number] Admin: 06/02/19 16:33 Dose: 999 mls/hr Documented by: [id number] Infusion: 06/02/19 16:31 Dose: 999 mls/hr Documented by: [id number] Admin: 06/02/19 15:30 Dose: 999 mls/hr Documented by: [id number] Lorazepam (Ativan) 0.5 mg in 1 mls @ 1 mls/min IV NOW STA Stop: 06/02/19 15:10 Last Admin: 02/24/20 16:10 Dose: 1 mls/min Documented by: [id number] Potassium Chloride (K Robert / Wtr) 10 meq in 100 mls @ 100 mls/hr IV Q1H [facility] Stop: 06/03/19 02:59 Last Infusion: 06/03/19 06:05 Dose: 0 mls/hr Documented by: [id number] Admin: 06/03/19 04:29 Dose: 100 mls/hr Documented by: [id number] Infusion: 06/03/19 04:29 Dose: 0 mls/hr Documented by: [id number] Admin: 06/03/19 02:47 Dose: 100 mls/hr Documented by: [id number] Infusion: 06/03/19 01:38 Dose: 100 mls/hr Documented by: [id number] Admin: 06/03/19 00:38 Dose: 100 mls/hr Documented by: [id number] Infusion: 06/03/19 00:35 Dose: 100 mls/hr Documented by: [id number] Admin: 06/02/19 23:35 Dose: 100 mls/hr Documented by: [id number] Metoclopramide HCl (Reglan) 10 mg IV NOW STA Stop: 06/02/19 15:10 Last Admin: 06/02/19 16:10 Dose: 10 mg Documented by: [id number] Morphine Sulfate (Morphine Sulfate) 4 mg IV NOW STA Stop: 06/02/19 18:08 Last Admin: 06/02/19 18:23 Dose: 4 mg Documented by: [id number] Medical Decision Making Differential Diagnosis Differential diagnosis: Etiologies such as gastroenteritis, food borne illness, infections, a ppendicitis, diverticulitis, inflammatory bowel disease, obstruction, GI bleed, biliary pathology, cardiac process, intracranial process, as well as others were entertained. Laboratory Data Result diagrams: 06/02/19 15:36 06/03/19 08:53 Lab Results 06/02/19 06/02/19 Range/Units 15:36 15:36 WBC 13.72 H (4.8-10.8) K/uL RBC 4.64 L (4.7-6.1) M/uL Hgb 12.9 L (14.0-18.0) g/dL Hct 38.7 L (42-52) % MCV 83.4 (80-100) fL MCH 27.8 (25-34) pg MCHC 33.3 (32-36) g/dL RDW Std Deviation 50.6 H (36.4-46.3) fL RDW Coeff of Chava 16.9 H (11.5-14.5) % Plt Count 356 (130-400) K/uL MPV 9.7 (7.4-10.4) fL Immature Gran % (Auto) 0.8 % Neut % (Auto) 79.8 % Lymph % (Auto) 7.9 % Luna % (Auto) 9.2 % Eos % (Auto) 1.9 % Baso % (Auto) 0.4 % Immature Gran # (Auto) 0.11 H (0.00-0.02) K/uL Neut # (Auto) 10.94 H (1.4-6.5) K/uL Lymph # (Auto) 1.09 L (1.2-3.4) K/uL Luna # (Auto) 1.26 H (0.11-0.59) K/uL Eos # (Auto) 0.26 (0-0.5) K/uL Baso # (Auto) 0.06 (0-0.2) K/uL Sodium 137 (136-145) mmol/L Potassium 3.0 L (3.5-5.1) mmol/L Chloride 101 (98-107) mmol/L Carbon Dioxide 27 (21-32) mmol/L Anion Gap 9.0 (3-11) BUN 9 (7-18) mg/dl Creatinine 0.63 (0.6-1.4) mg/dl Est Cr Clr Drug Dosing 154.9 ml/min Est GFR ( Amer) 127.7 Est GFR (Non-Af Amer) 110.2 BUN/Creatinine Ratio 14.4 (10-20) Glucose 186 H (70-99) mg/dl Calcium 9.3 (8.5-10.1) mg/dl Magnesium 1.7 L (1.8-2.4) mg/dl Total Bilirubin 1.6 H (0.2-1) mg/dl AST 59 H (15-37) U/L ALT 53 (12-78) U/L Alkaline Phosphatase 716 H (45-117) U/L Total Protein 7.1 (6.4-8.2) gm/dl Albumin 2.3 L (3.4-5.0) gm/dl Globulin 4.8 H (2.5-4.0) gm/dl Albumin/Globulin Ratio 0.5 L (0.9-2) Imaging Data Radiologist's Impression: KUB CLINICAL HISTORY: Nausea and vomiting. Pancreatic cancer. COMPARISON STUDY: CT of the abdomen and pelvis May 14, 2019. FINDINGS: The bowel gas pattern is normal. No urinary calculi are identified. No suspicious lesions are identified within the visualized skeletal structures. IMPRESSION: No evidence for a bowel obstruction. MDM Narrative Physical exam and history were performed. Nursing notes, EMR, and Medication List were personally reviewed. Patient appears to have nausea and vomiting bringing him to the ER today. The patient has a relatively new diagnosis of pancreatic cancer with metastatic dise ase. On examination the patient does appear dehydrated. IV access was established and labs were obtained. He was hydrated with normal saline. The patient has responded poorly to Phenergan and Zofran in the past. I did provide him a cocktail of Reglan, Ativan, Benadryl, Haldol, and morphine. The patient's blood work is as above and was reviewed. He does have a slightly elevated white blood cell count of 13,000. He is mildly anemic at 12.9. Magnesium is 1.7. His alk phos is 716, and this does continue to increase likely from metastatic process. Urine is without gross evidence of UTI. KUB was performed and reviewed by myself and radiology showing no obstruction. The case was discussed with my attending physician, Dr. Santos, who remained involved in care and decision-making. The patient was previously admitted to this facility and has been seen by palliative care. Palliative care was kind enough to come to the ER and speak with the patient. It seems that he likely needs additional services through hospice which has not yet been established. Overall the patient did feel improved, but states that he does not feel well enough for discharge home. The case was discussed with the on-call hospitalist team for further management. Please see their dictation for further patient course, plan, and disposition. The chart was completed utilizing [employer] Speech Voice Recognition Software. Grammatical errors, random word insertions, pronoun errors, and incomplete sentences are an occasional consequence of this system due to software limitations, ambient noise, and hardware issues. Any formal questions or concerns about the content, text, or information contained within the body of this dictation should be directly addressed to the provider for clarification. . Impression & Plan Nausea & vomiting, Pancreatic cancer, Moderate dehydration Discharge Plan Visit Data *Final* Discharge Date/Time: 06/02/19 22:12 Chief Complaint: Vomiting Stated Complaint: PANCREATIC CANCER, VOMITING ED Provider: Leandro Santos ED Midlevel Provider: Jaime Moreira Discharge Problem: Nausea & vomiting, Pancreatic cancer, Moderate dehydration Patient Disposition: Admitted As Inpatient Discharge Instructions Interventions: ED Discharge Assessment Last Done: 06/02/19 22:12
[2019-06-02] MEDS: SODIUM CHLORIDE 0.9% 1000ML 1,000 ML IV SCH ×3 (15:30→23:35)
[2019-06-02 15:57] LABS: Basophils # (auto) 0.06 K/uL (0-0.2); Basophils % (auto) 0.4 %; Eosinophils # (auto) 0.26 K/uL (0-0.5); Eosinophils % (auto) 1.9 %; Hematocrit (blood only) 38.7 % (42-52); Hemoglobin 12.9 g/dL (14.0-18.0); Immature Granulocytes # (auto) 0.11 K/uL (0.00-0.02); Immature Granulocytes % (auto) 0.8 %; Lymphocytes # (auto) 1.09 K/uL (1.2-3.4); Lymphocytes % (auto) 7.9 %; Mean Corpuscular Hemoglobin 27.8 pg (25-34); Mean Corpuscular Hgb Conc 33.3 g/dL (32-36); Mean Corpuscular Volume 83.4 fL (80-100); Mean Platelet Volume 9.7 fL (7.4-10.4); Monocytes # (auto) 1.26 K/uL (0.11-0.59); Monocytes % (auto) 9.2 %; Neutrophils # (auto) 10.94 K/uL (1.4-6.5); Neutrophils % (auto) 79.8 %; Platelet Count 356 K/uL (130-400); RDW Coefficient of Variation 16.9 % (11.5-14.5); RDW Standard Deviation 50.6 fL (36.4-46.3); Red Blood Count 4.64 M/uL (4.7-6.1); White Blood Count 13.72 K/uL (4.8-10.8)
[2019-06-02 16:26] LABS: Albumin Level 2.3 gm/dl (3.4-5.0); BUN Creatinine Ratio 14.4 (10-20); Calcium 9.3 mg/dl (8.5-10.1); Creatinine Clr Calc Pharmacy 154.9 ml/min; Est GFR (African American) 127.7; Est GFR (Non-African American) 110.2; Magnesium 1.7 mg/dl (1.8-2.4)
[2019-06-02 16:29] LABS: Albumin Globulin Ratio 0.5 (0.9-2); Bilirubin,Total 1.6 mg/dl (0.2-1); Globulin 4.8 gm/dl (2.5-4.0); Total Protein 7.1 gm/dl (6.4-8.2)
[2019-06-02] MEDS ORDERED: HALOPERIDOL LACTATE 5 MG/ML 1 ML VIAL IV STA (16:51)
[2019-06-02] MEDS ORDERED: DiphenhydrAMINE HCL 50 MG/ML VIAL IV STA (16:51)
--- NOTE | 2019-06-02 17:04 | XRay Report ---
KUB CLINICAL HISTORY: Nausea and vomiting. Pancreatic cancer. COMPARISON STUDY: CT of the abdomen and pelvis May 14, 2019. FINDINGS: The bowel gas pattern is normal. No urinary calculi are identified. No suspicious lesions a re identified within the visualized skeletal structures. IMPRESSION: No evidence for a bowel obstruction. ACT 112: Negative or not required by law. Electronically signed by: Otis Vizcaino M.D. 06/02/2019 5:03 PM
--- NOTE | 2019-06-02 17:49 | Palliative Care Consultation ---
Date of Consultation June 02, 2019 Assessment & Plan (1) Palliative care encounter: Patient known to our service from a recent hospitalization from 05/14 to 05/16 where he was admitted for intractable nausea and vomiting. Patient was to follow-up in the outpatient palliative clinic-has not yet been seen. Received a call from patient's this a.m.-patient started to have nausea and vomiting over the weekend with 2 episodes of emesis on Sunday and 4 episodes since Sunday afternoon. Spoke with patient's as well as patient regarding treatment options including coming to the emergency room to see if he had electrolyte imbalance from the vomiting or needed IV fluids versus contacting hospice and managing symptoms at home. Patient has metastatic stage IV pancreatic cancer that did not respond to chemo, patient tolerated chemo poorly. Patient's CA 199 was 39,[phone] in March, alexandre to [phone] on 05/16. Patient CT scan showed significant disease progression. Patient and decided to come to the emergency room-met them in room B 11, patient's daughter also present. Patient had lab work drawn-BUN was 9, potassium 3.0. Spoke with privately regarding patient's current prognosis, had spoken with Dr. Jc earlier today. Patient's prognosis is likely weeks, she and her need to discuss where he wants to spend the time he is left. reports that patient asked her when he got to the ER if he was going to be able to go home this time. Discussed with at length what hospice can manage at home. Patient can return home today if he wishes, case management can give the family a list of hospice agencies in the area. Educated on how to contact hospice, Dr. Mo can complete the referral. -Goals of care- and patient to decide whether or not patient prefers admission or return home. Patient and considering hospice referral -Nausea with vomiting-Zofran, Compazine, Phenergan have been effective in the past, on last admission Reglan was effective. Discussed with patient as well as ER attending trial of Haldol to help control nausea. -Pancreatic cancer-mets to liver-did not respond to chemo, patient tolerated chemo poorly. At this time patient is not a candidate for any further chemo. Prognosis weeks to a month or so. -Leukocytosis-White count has been elevated during previous stay-WBC count lower than prior count at the time of discharge on 05/16 -GERD-patient reports Pepcid is effective (2) Malignant neoplasm of pancreas metastatic to liver: (3) Leukocytosis: (4) Laryngopharyngeal reflux: (5) Pancreatic cancer: Pancreatic malignancy location: unspecified Qualified Code(s): C25.9 - Malignant neoplasm of pancreas, unspecified (6) Nausea & vomiting: History of Present Illness Reason for Consultation: Discuss goals of care Requesting Physician: Jaime Moreira PA-C Attending Physician: Dr Santos History of Present Illness Patient known to our service from a recent hospitalization from 05/14 to 05/16 where he was admitted for intractable nausea and vomiting. Patient was to follow-up in the outpatient palliative clinic-has not yet been seen. Received a call from patient's this a.m.-patient started to have nausea and vomiting over the weekend with 2 episodes of emesis on Sunday and 4 episodes since Sunday afternoon. Spoke with patient's as well as patient regarding treatment options including coming to the emergency room to see if he had electrolyte imbalance from the vomiting or needed IV fluids versus contacting hospice and managing symptoms at home. Patient has metastatic stage IV pancreatic cancer that did not respond to chemo, patient tolerated chemo poorly. Patient's CA 199 was 39,993 in March, alexandre to 56,806 on 05/16. Patient CT scan showed significant disease progression. Patient and decided to come to the emergency room-met them in room B 11, patient's daughter also present. Patient had lab work drawn-BUN was 9, potassium 3.0. Spoke with privately regarding patient's current prognosis, had spoken with Dr. cJ earlier today. Patient's prognosis is likely weeks, she and her need to discuss where he wants to spend the time he is left. reports that patient asked her when he got to the ER if he was going to be able to go home this time. Discussed with at length what hospice can manage at home. Patient can return home today if he wishes, case management can give the family a list of hospice agencies in the area. Educated on how to contact hospice, Dr. Mo can complete the referral. Allergies Allergy/AdvReac Type Severity Reaction Status Date / Time lisinopril Allergy Unknown Cough Verified 06/02/19 17:23 Home Medications Home Medications Medication Instructions Recorded Confirmed Type atenolol 50 mg tablet 50 mg PO HS tab 12/16/18 06/02/19 History aspirin 81 mg PO HS 02/13/19 06/02/19 History atorvastatin 20 mg PO QAM 02/13/19 06/02/19 History cetirizine [24Hour Allergy] 10 mg PO QAM 02/13/19 06/02/19 History losartan [Cozaar] 25 mg PO QAM 02/13/19 06/02/19 History multivitamin 1 tab PO QAM 02/13/19 06/02/19 History ibuprofen 600 - 800 mg PO BID PRN 03/31/19 06/02/19 History metformin 500 mg tablet 1,000 mg PO DAILY tab 04/08/19 06/02/19 History acetaminophen [Tylenol Extra 1,000 mg PO Q6H PRN 04/16/19 06/02/19 History Strength] lorazepam [Ativan] 0.5 mg PO Q4 PRN 05/14/19 06/02/19 History sertraline 50 mg PO DAILY 05/14/19 06/02/19 History metoclopramide HCl 10 mg PO Q8H PRN 06/02/19 06/02/19 History prochlorperazine maleate 10 mg PO Q6H PRN 06/02/19 06/02/19 History Patient History Medical History Diabetes mellitus, type 2 NIDDM Fatty liver Hx of cardiac murmur no murmur noted per anesthesia evaluation 02/14/19 ([facility]) Hyperlipidemia Hypertension Malignant neoplasm of pancreas metastatic to liver Morbid obesity Pancreatic cancer (Acute) Port-A-Cath in place (04/16/19) Insertion of Mediport into Left Internal Jugular with Fluoroscopy Dr. Estrada 04/16/19 Sleep apnea CPAP Surgical History History of tonsillectomy History of tooth extraction Hx of biopsy PANCREAS Strabismus REPAIR Social History Preferred Language: Croatian Communication Ability: Effective Bolt Header Required: No Beliefs That Will Affect Care: None marital status: Current Living Situation: Spouse Feels Safe at Home: Yes Smoking Status: Never smoker Second Hand Exposure: No ; Hx Alcohol Use: No Hx Substance Use: No Review of Systems Review of Systems: Patient denies fever, chills, chest pain, shortness of breath, or abdominal pain. Positive for nausea, vomiting and back pain. Physical Exam Physical Exam: PE: Patient comfortable, lying on stretcher in ER HEENT: EOMI, hearing within normal limits Respirations: Unlabored CV: Regular rate Abdomen: Distended Extremities: Full range of motion Neuro: Alert and oriented x4 Results & Data Vital Signs (Past 12 Hours) Vital Signs Temp Pulse Pulse Resp BP BP Pulse Ox 06/02/19 17:00 93 H 20 117/66 96 06/02/19 14:54 97.7 F 110 H 18 100/72 98 PG Care Time/CCT Total # of Minutes Spent Total Time Spent with Patient: Total time spent 70 minutes with greater than 50% of the time spent at bedside reviewing patient's treatment options as well as goals of care Coding Level of Care Code 90404 Inpt Consult Level 3 Diagnoses Palliative care encounter Z51.5 Malignant neoplasm of pancreas metastatic to liver C25.9; C78.7 Leukocytosis D72.829 Laryngopharyngeal reflux K21.9 Pancreatic cancer C25.9 Pancreatic malignancy location: unspecified Nausea & vomiting R11.2 Time Spent (min) 70
[2019-06-02] MEDS ORDERED: MoRPHine SULFATE 4 MG/ML 1 ML CARP\\VIAL IV STA (18:07)
--- NOTE | 2019-06-02 20:06 | History & Physical Report ---
Date of Service June 02, 2019 Assessment & Plan (1) Nausea & vomiting: Patient is responding well to current regimen. For now, will change p.o. Reglan to IV and dose it [id number]. We can continue Zofran and haldol as needed for the nausea and vomiting. Further antiemetics can be added if patient seems to be worsening. Will replete potassium by IV. Patient is agreeable to trying a clear liquid diet, can advance slowly as tolerated. (2) Pancreatic cancer: Patient was already seen by the palliative care service here. As per their note, patient has extremely poor prognosis and likely has a life expectancy of only a few weeks. They will continue to work the patient for possible transition to hospice during this admission. (3) Diabetes mellitus, type 2: Patient was previously on metformin, will hold. Try a low sliding scale insulin till the patient is reliably back on diet. History of Present Illness Primary Care Provider: Georges Licea MD This is a 58-year-old male with widely metastatic pancreatic cancer that presents complaining of intractable nausea vomiting. Patient is accompanied by his and both are good historians. Patient was here very recently with similar complaints. He was followed by palliative care. He had received 2 rounds of chemotherapy approximately a month ago. Between yesterday he has had 5 episodes of emesis. He called his primary care physician who advised him to come to the emergency room. Patient was given Haldol, morphine, Benadryl, and Ativan along with IV Reglan. At the time my evaluation he feels that he may be a little improved and is now tolerating small amounts of water and ice chips. Of note, he denies any fever, chills, abdominal pain, chest pain. He does have a little bit of soreness under his ribs but this is not severe. Allergies Allergy/AdvReac Type Severity Reaction Status Date / Time lisinopril Allergy Unknown Cough Verified 06/02/19 17:23 Home Medications Home Medications Medication Instructions Recorded Confirmed Type atenolol 50 mg tablet 50 mg PO HS tab 12/16/18 06/02/19 History aspirin 81 mg PO HS 02/13/19 06/02/19 History atorvastatin 20 mg PO QAM 02/13/19 06/02/19 History cetirizine [24Hour Allergy] 10 mg PO QAM 02/13/19 06/02/19 History losartan [Cozaar] 25 mg PO QAM 02/13/19 06/02/19 History multivitamin 1 tab PO QAM 02/13/19 06/02/19 History ibuprofen 600 - 800 mg PO BID PRN 03/31/19 06/02/19 History metformin 500 mg tablet 1,000 mg PO DAILY tab 04/08/19 06/02/19 History acetaminophen [Tylenol Extra 1,000 mg PO Q6H PRN 04/16/19 06/02/19 History Strength] lorazepam [Ativan] 0.5 mg PO Q4 PRN 05/14/19 06/02/19 History sertraline 50 mg PO DAILY 05/14/19 06/02/19 History metoclopramide HCl 10 mg PO Q8H PRN 06/02/19 06/02/19 History prochlorperazine maleate 10 mg PO Q6H PRN 06/02/19 06/02/19 History Past Med/Surg History Medical History Diabetes mellitus, type 2 NIDDM Fatty liver Hx of cardiac murmur no murmur noted per anesthesia evaluation 02/14/19 ([facility]) Hyperlipidemia Hypertension Malignant neoplasm of pancreas metastatic to liver Morbid obesity Pancreatic cancer (Acute) Port-A-Cath in place (04/16/19) Insertion of Mediport into Left Internal Jugular with Fluoroscopy Dr. Estrada 04/16/19 Sleep apnea CPAP Surgical History History of tonsillectomy History of tooth extraction Hx of biopsy PANCREAS Strabismus REPAIR Social History Preferred Language: Syriac Communication Ability: Effective Cloth Napping Supervisor Required: No Beliefs That Will Affect Care: None marital status: Current Living Situation: Spouse Feels Safe at Home: Yes Smoking Status: Never smoker Second Hand Exposure: No ; Hx Alcohol Use: No Hx Substance Use: No Review of Systems Constitutional: no fever, no chills, no weakness, no weight loss and no weight gain Eyes: as per Subjective / HPI Respiratory: no cough, no chest congestion, no dyspnea and no dyspnea on exertion Cardiovascular: no chest pain, no orthopnea, no palpitations, no lightheadedn ess and no edema Gastrointestinal: + abdominal pain, + nausea and + vomiting; no constipation and no diarrhea/loose stools Musculoskeletal: no back pain, no neck pain, no joint pain, no stiffness and no myalgia Integumentary: no rash Neurologic: no gait abnormality, no unsteadiness, no falls and no generalized weakness Physical Exam Constitutional: cooperative; no acute distress nonjaundiced, aninteric Neck: trachea midline, no thyromegaly Respiratory: normal respiratory effort Auscultation: lungs clear to auscultation bilaterally; no crackles, no rales, no rhonchi and no wheezes Cardiovascular: Rate/Rhythm: regular rate and regular rhythm Heart Sounds: normal S1, normal S2 and + murmur Gastrointestinal (Abdomen): Inspection/Auscultation: abdomen normal to inspection Percussion/Palpation: abdomen soft; abdomen nontender, no guarding, abdomen not rigid and no hepatosplenomegaly Skin: no rashes, warm and dry Results & Data Vital Signs (Past 12 Hours) Vital Signs Temp Pulse Pulse Resp BP BP Pulse Ox 06/02/19 19:00 20 06/02/19 17:00 93 H 20 117/66 96 06/02/19 14:54 36.5 C 110 H 18 100/72 98 Laboratory Results WBC is 13.7. Hemoglobin is 12.8 with hematocrit of 30.7. Potassium is 3. Glucose is 186. Alk phos is elevated at 716. AST slightly elevated at 59 with an ALT of 53 which is within normal limits. Diagnostic Findings [facility] CLINICAL HISTORY: Nausea and vomiting. Pancreatic cancer. COMPARISON STUDY: CT of the abdomen and pelvis May 14, 2019. FINDINGS: The bowel gas pattern is normal. No urinary calculi are identified. No suspicious lesions are identified within the visualized skeletal structures. IMPRESSION: No evidence for a bowel obstruction. PG Care Time/CCT Total # of Minutes Spent Total Time Spent with Patient: Total time spent is greater than 50% in coordination of care (as documented) at patient's floor/unit and/or counseling patient: Coding Level of Care Code 32060 OBS Care - Level 3 Diagnoses Nausea & vomiting R11.2 Pancreatic cancer C25.9 Pancreatic malignancy location: unspecified Diabetes mellitus, type 2 E11.9 (1) Pancreatic cancer Pancreatic malignancy location: unspecified Qualified Code(s): C25.9 - Malignant neoplasm of pancreas, unspecified
[2019-06-02] MEDS ORDERED: DEXTROSE 50% 50 ML SYRINGE IV PRN (22:20)
[2019-06-02] MEDS ORDERED: PROCHLORPERAZINE MALEATE 10 MG TAB PO PRN (22:20)
[2019-06-02] MEDS ORDERED: ACETAMINOPHEN 500 MG TAB PO PRN (22:20)
[2019-06-02] MEDS ORDERED: GLUCOSE 10 TABS/TUBE PO PRN (22:20)
[2019-06-02] MEDS ORDERED: GLUCAGON FOR INJ 1 MG VIAL SQ PRN (22:20)
[2019-06-02] MEDS ORDERED: CARBOHYDRATES FOR HYPOGLYCEMIA PO PRN (22:20)
[2019-06-02] MEDS ORDERED: GLUCOSE 40% GEL 15 GM TUBE PO PRN (22:20)
[2019-06-02] MEDS ORDERED: HALOPERIDOL LACTATE 5 MG/ML 1 ML VIAL IM PRN (22:20)
[2019-06-02 22:38] LABS: Appearance Urine Cloudy (Clear); Bacteria Urine Automated Negative (Negative); Blood Urine Negative (Negative); Color Urine Orange; Glucose Urine UA Trace (Negative); Ketones Urine Trace (Negative); Leukocyte Esterase Urine Trace (Negative); Nitrite Urine Positive (Negative); Protein Urine 1+ (Negative); RBC Urine Automated 0-4 /hpf (0-4); Specific Gravity Urine 1.032 (1.000-1.030); Urobilinogen Urine Negative (Negative); pH Urine 5.5 (4.5-7.5)
[2019-06-02] MEDS ORDERED: IBUPROFEN 200 MG TAB PO PRN (22:42)
[2019-06-02 22:53] LABS: Bilirubin Urine Negative (Negative); Ictotest Urine Negative (Negative)
[2019-06-02 22:56] LABS: Mucus Urine Present (None Prsent)
[2019-06-02 22:57] LABS: Calcium Oxalate Crystals Urine Present (None Prsent)
[2019-06-02] MEDS: METOCLOPRAMIDE HCL INJ 5 MG/ML 2 ML VIAL IV SCH (23:26)
[2019-06-02] MEDS: POTASSIUM CHLORIDE / WTR 10 MEQ/100 ML PLCT IV SCH (23:35)
[2019-06-02] MEDS: HEPARIN SOD 5,000 UNIT/0.5 ML VIAL SQ SCH (23:51)
[2019-06-02] MEDS: ASPIRIN 81 MG ECTAB PO SCH (23:51)
[2019-06-02] MEDS: INSULIN ASPART 100 UNITS/ML 3 ML PEN SC SCH (23:51)
[2019-06-02] MEDS: ATENOLOL 50 MG TABLET PO SCH (23:52)
[2019-06-03] MEDS: POTASSIUM CHLORIDE / WTR 10 MEQ/100 ML PLCT IV SCH ×7 (00:38→23:26)
[2019-06-03] MEDS: ondansetron HCL 6 MG in DEXTROSE 5% 50 ML IV PRN ×3 (00:56→14:38)
[2019-06-03] MEDS: LORazepam 0.5 MG TAB PO PRN ×2 (01:38→07:01)
[2019-06-03] MEDS: ACETAMINOPHEN 1,000 MG/100 ML VIAL IV PRN ×3 (01:38→21:35)
[2019-06-03] MEDS ORDERED: HEPARIN 100 UNIT/ML 5ML FLUSH FLUSH PRN (05:20)
[2019-06-03] MEDS: HEPARIN SOD 5,000 UNIT/0.5 ML VIAL SQ SCH ×3 (05:51→20:25)
[2019-06-03] MEDS: PROMETHAZINE HCL 12.5 MG in SODIUM CHLORIDE 0.9% 50 ML IV PRN ×2 (05:51→11:38)
[2019-06-03] MEDS: METOCLOPRAMIDE HCL INJ 5 MG/ML 2 ML VIAL IV SCH ×3 (05:54→21:37)
[2019-06-03] MEDS: INSULIN ASPART 100 UNITS/ML 3 ML PEN SC SCH ×4 (08:13→21:45)
[2019-06-03] MEDS: LIDOCAINE 5% 1 PATCH TD SCH (08:45)
[2019-06-03] MEDS: NYSTATIN SUSP 500,000 U/5 ML UDC PO SCH ×4 (08:49→20:25)
[2019-06-03] MEDS ORDERED: haloperidoL 1 MG TAB PO PRN (09:06)
[2019-06-03] MEDS ORDERED: dexAMETHasone 4 MG TAB PO SCH (09:30)
[2019-06-03 09:34] LABS: BUN Creatinine Ratio 10.8 (10-20); Calcium 8.6 mg/dl (8.5-10.1); Creatinine Clr Calc Pharmacy 175.1 ml/min; Est GFR (Non-African American) 115.6; Potassium 3.3 mmol/L (3.5-5.1)
[2019-06-03] MEDS: SERTRALINE HCL 50 MG TABLET PO SCH (10:12)
[2019-06-03] MEDS: MAGNESIUM CHLORIDE 64MG DELAYED REL TAB PO SCH (10:12)
[2019-06-03] MEDS: MULTIVITAMIN TAB PO SCH (10:12)
[2019-06-03] MEDS: CETIRIZINE HCL 10 MG TABLET PO SCH (10:13)
[2019-06-03] MEDS: SODIUM CHLORIDE 0.9% 1000ML 1,000 ML IV SCH (10:27)
[2019-06-03] MEDS: LORazepam 0.5 MG/1 ML VIAL IV PRN ×5 (10:55→21:51)
[2019-06-03] MEDS: DEXAMETHASONE SOD PHOSPHATE 4 MG in SYRINGE 0 ML IV SCH ×2 (10:56→21:29)
[2019-06-03] MEDS: cefTRIAXone SODIUM 2,000 MG in DEXTROSE 5% 50 ML IV SCH (12:29)
[2019-06-03] MEDS: FAMOTIDINE 20 MG in SYRINGE 3 ML IV SCH ×3 (12:29→22:07)
[2019-06-03] MEDS: ATORVASTATIN 20 MG TAB PO SCH (13:24)
[2019-06-03] MEDS: LOSARTAN POTASSIUM 25 MG TAB PO SCH (13:24)
--- NOTE | 2019-06-03 15:54 | Hospitalist Progress Note ---
Date of Service June 03, 2019 Assessment & Plan (1) Nausea & vomiting: Pleasant 58 yo M with PMH HTN, DM2, HLD, and recently diagnosed Stage 4 pancreatic cancer with mets to the liver, lungs, lymph nodes and omentum s/p 2 rounds of chemotherapy 1 month ago, familiar with the palliative care team. 1) Nausea and Vomiting - Anti-Emetic regimen: - Dexamethasone 4 mg IV BID - Reglan 10 IV Q8H PRN - Haloperidol 1 mg PO TID - mildly improved with adjustments to above medications - appreciate input from palliative care team for pain and nausea recommendations 2) Pain secondary to pancreatic cancer - Tylenol 1g IV Q6H PRN - Ibuprofen 800 mg PO BID PRN - Lidocaine Patch - case management consulted for options for home hospice 3) Anxiety - Ativan 0.5 mg IV Q2H PRN - Atenolol 50 mg PO HS - Sertraline 50 mg PO daily 4) UTI - cloudy urine sample with positive nitrites, protein, trace leukocyte esterase - treating presumptively with ceftriaxone 4) HTN - Losartan 25 mg PO AM - ASA 81 daily 5) GERD - Pepcid 20mg IV BID DVT ppx: none GI ppx: pepcid IV FEN: full diet Code: Hospice Care (2) Malignant neoplasm of pancreas metastatic to liver: (3) Goals of care, counseling/discussion: (4) Palliative care encounter: (5) Leukocytosis: (6) Anemia: (7) Diabetes mellitus, type 2: (8) Hyperlipidemia: (9) Hypertension: Admission and Anticipated Discharge Date Admission Date: June 02, 2019 Supervising Physician Co-Signing Physician Notes Attending attestation Pt seen and examined in concert with Dr. Crane. In agreement with the documented findings as noted in the resident documentation with any exceptions or additions as noted here. Minimally improved nausea with decreased frequency of vomiting following overnight administration of antiemetic therapy. On examination, S1/S2 nl RRR no MCG. CTAB. Abd NT/ND BS+ve Nausea/Vomiting, intractable in the setting of stage IV pancreatic cancer s/p 2x chemotherapy - palliative care consultation appreciated - increased lorazepam frequency IV. D/C ondansetron. Add SL haloperidol. Working towards home hospice - have agency, need capabilities to design regimen. Subjective 58 yo M with HTN, DM2, HLD and recently diagnosed Stage 4 pancreatic cancer with mets to the liver, lungs, lymph nodes and omentum s/p 2 rounds of chemotherapy 1 month ago, familiar with the palliative care team. Presented to the ED yesterday for intractable nausea and vomiting. Has been unable to keep any food or water down. Review of Systems Constitutional: no fever, no chills, no body aches and no fatigue Respiratory: no cough and no dyspnea Cardiovascular: no chest pain, no dyspnea and no edema Gastrointestinal: + abdominal pain, + nausea and + vomiting; no constipation and no diarrhea/loose stools Musculoskeletal: + back pain Physical Exam Constitutional: Lethargic in bed, speaking slowly and visibly uncomfortable laying in the darkness Respiratory: normal respiratory effort and able to speak in complete sentences; no respiratory distress, no labored breathing, no retractions, no cough and no audible wheezes Auscultation: lungs clear to auscultation bilaterally; no crackles, no rales, no rhonchi and no wheezes Cardiovascular: Rate/Rhythm: regular rate and regular rhythm Heart Sounds: normal S1 and normal S2; no gallop, no murmur and no cardiac rub Vessels: posterior tibial pulses present Extremities: no pedal edema and no edema Results & Data ([facility]) Vital Signs (Past 12 Hours) Vital Signs Temp Pulse Resp BP BP Pulse Ox 06/03/19 11:47 36.7 C 92 H 18 138/86 96 06/03/19 07:53 36.9 C 90 18 143/87 H 96 06/03/19 04:10 36.6 C 95 H 18 108/73 97 06/03/19 06/03/19 06/03/19 Range/Units 16:49 11:43 08:53 Sodium 138 (136-145) mmol/L Potassium 3.3 L (3.5-5.1) mmol/L Chloride 106 (98-107) mmol/L Carbon Dioxide 26 (21-32) mmol/L Anion Gap 7.0 (3-11) BUN 6 L (7-18) mg/dl Creatinine 0.56 L (0.6-1.4) mg/dl Est Cr Clr Drug Dosing 175.1 ml/min Est GFR ( Amer) 134.0 Est GFR (Non-Af Amer) 115.6 BUN/Creatinine Ratio 10.8 (10-20) Glucose 139 H (70-99) mg/dl POC Glucose 201 H 132 H (70-99) mg/dl Calcium 8.6 (8.5-10.1) mg/dl Urine Color Urine Appearance (Clear) Urine pH (4.5-7.5) Ur Specific Clutier (1.000-1.030) Urine Protein (Negative) Urine Glucose (UA) (Negative) Urine Ketones (Negative) Urine Blood (Negative) Urine Nitrite (Negative) Urine Bilirubin (Negative) Urine Urobilinogen (Negative) Ur Leukocyte Esterase (Negative) Urine WBC (Auto) (0-5) /hpf Urine RBC (Auto) (0-4) /hpf U Hyaline Cast (Auto) (0-5) /lpf U Epithel Cells (Auto) (0-5) /lpf Urine Bacteria (Auto) (Negative) Ur Renal Epithelial Cell Calcium Oxalate Crystal (None Prsent) WBC Casts (0) /lpf Urine Mucus (None Prsent) 06/03/19 06/02/19 06/02/19 Range/Units 07:42 23:38 21:48 Sodium (136-145) mmol/L Potassium (3.5-5.1) mmol/L Chloride (98-107) mmol/L Carbon Dioxide (21-32) mmol/L Anion Gap (3-11) BUN (7-18) mg/dl Creatinine (0.6-1.4) mg/dl Est Cr Clr Drug Dosing ml/min Est GFR ( Amer) Est GFR (Non-Af Amer) BUN/Creatinine Ratio (10-20) Glucose (70-99) mg/dl POC Glucose 131 H 144 H (70-99) mg/dl Calcium (8.5-10.1) mg/dl Urine Color Worth Urine Appearance Cloudy A (Clear) Urine pH 5.5 (4.5-7.5) Ur Specific Cl[place]ier 1.032 H (1.000-1.030) Urine Protein 1+ H (Negative) Urine Glucose (UA) Trace H (Negative) Urine Ketones Trace H (Negative) Urine Blood Negative (Negative) Urine Nitrite Positive A (Negative) Urine Bilirubin Negative (Negative) Urine Urobilinogen Negative (Negative) Ur Leukocyte Esterase Trace H (Negative) Urine WBC (Auto) 10-30 H (0-5) /hpf Urine RBC (Auto) 0-4 (0-4) /hpf U Hyaline Cast (Auto) 10-30 H (0-5) /lpf U Epithel Cells (Auto) 10-20 H (0-5) /lpf Urine Bacteria (Auto) Negative (Negative) Ur Renal Epithelial Cell Not Reportable Calcium Oxalate Crystal Present A (None Prsent) WBC Casts 1-5 H (0) /lpf Urine Mucus Present A (None Prsent) Resident Activity Tracking Resident Involvement: Resident Care Provided Care Provided: Adult Hospital Medicine
--- NOTE | 2019-06-03 15:57 | Palliative Care Progress Note ---
Date of Service June 03, 2019 Assessment & Plan (1) Goals of care, counseling/discussion: -Family meeting with patient, his son Donavon, daughter Nona, Janeth, friend Carly, Dr. Tran, myself and Dr. Licea. Patient is drowsy, but does easily wake up when spoken to. -The plan is for patient to return home with hospice care. Patient and family are aware of patient's prognosis of likely weeks. Family is concerned that patient may not be as accepting of his diagnosis as his and children. We discussed that due to the aggressive and rapid nature of patient's terrible disease, he really has not had time to process any of it. His family and friends haven't had time either. However, patient has made comments like "Am I going to make it home from the hospital this time?" which tells us that he does understand his prognosis. It is okay that he is still not "accepting" of it or a lways willing to talk about it. Used the analogy that facing is like staring at the sun-- it's difficult and it hurts. A person can only do it for very short periods of time and every so often. It doesn't mean that he or she doesn't know it's there. Family understands and agrees. - asked about patient's other children and if they should be coming to see him now. Discussed that this is the best patient is going to be, so the other children who are out of state should know to come see patient as soon as possible. They plan to call them right after our conversation. -Pain and nausea currently under control. -Nausea medications: -Reglan 10mg IV Q8h scheduled-- will continue. Plan to continue at home through hospice if able. -Promethazine PRN IV-- discontinued due to sedation. -Lorazepam 0.5mg IV Q2h PRN (being used for anxiety and nausea)-- continue. This should be available at home through hospice agency if needed. -Haldol 1mg PO TID scheduled-- plan to continue at home if effective. -Zofran 6mg IV PRN-- discontinued as it is ineffective. -If patient's nausea is controlled with the haldol, could cut the Reglan and keep the PRN lorazepam. -Patient is currently only taking PRN Tylenol for pain. Can escalate to something stronger if needed. -Patient was not able to take any of his PO medications this morning due to nausea. They are still currently ordered. -Case management updated. I then received word that we do have a GIP contract with [facility]-- would certainly be appropriate to admit patient under GIP with eventual transition to home when he is comfortable and well-managed. Again, need to know that IV medications could be available in the home. -Of note, I did not realize prior to going in the room that patient did not have a code status ordered-- he was previously a full code and now will remain a full code until it is readdressed. This does not prevent a person from going home on hospice. If there is a window of opportunity to discuss this with patient and his , we will certainly do so. Otherwise, code status can be addressed by the hospice agency once patient is home. -We will continue to follow. (2) Malignant neoplasm of pancreas metastatic to liver: (3) Leukocytosis: (4) Laryngopharyngeal reflux: (5) Pancreatic cancer: (6) Nausea & vomiting: Subjective Patient continues to have issues with nausea-- it is currently controlled with multiple IV medications. Family meeting held to discuss discharge plan and hospice care. See A&P for details. Review of Systems Review of Systems: + mild abdominal and back pain. + nausea which is currently controlled. No vomiting since last evening. + drowsiness Physical Exam Constitutional: well developed, well nourished and comfortable; no acute distress ENMT: external ear and nose normal, oropharynx normal Respiratory: normal respiratory effort; no labored breathing Cardiovascular: Rate/Rhythm: regular rate and regular rhythm Extremities: no edema Neurologic: moves all extremities and awake; not confused Psychiatric: Orientation: oriented x 3; + not alert (drowsy) Results & Data Vital Signs (Past 12 Hours) Vital Signs Temp Pulse Resp BP BP Pulse Ox 06/03/19 11:47 36.7 C 92 H 18 138/86 96 06/03/19 07:53 36.9 C 90 18 143/87 H 96 06/03/19 04:10 36.6 C 95 H 18 108/73 97 Supervising Physician Co-Signing Physician Notes Patient seen and examined, patient's , son, daughter, and family friend at bedside. YAJAIRA Case and Dr. Licea also present during visit. PE: Patient resting comfortably, no acute distress HEENT: EOMI, hearing within normal limits Respirations: Unlabored CV: Regular rate Abdomen: No increased distention Extremities: No edema Neuro: Patient dozing off, easily aroused, was able to nod yes or no to simple questions. Agree with above note, assessment and plan as per YAJAIRA Case-we will continue to follow and assist family with medical decision making. PG Care Time/CCT Prolonged Care Time Prolonged Care Time: Yes Total Prolonged Care Time: 70 Coding Level of Care Code 22688 Subseq Hosp Care Lvl 3 Diagnoses Goals of care, counseling/discussion Z71.89 Malignant neoplasm of pancreas metastatic to liver C25.9; C78.7 Leukocytosis D72.829 Laryngopharyngeal reflux K21.9 Pancreatic cancer C25.9 Nausea & vomiting R11.2 Additional Codes Prolonged Care Time - Prolonged Care Time: Yes ([id number]) Time Spent (min) 70 Time Spent Midlevel 70 minutes with >50% of the time spent at bedside with patient, family and multiple providers discussing goals, comfort, and hospice.
[2019-06-03] MEDS: ASPIRIN 81 MG ECTAB PO SCH (21:29)
[2019-06-03] MEDS: ATENOLOL 50 MG TABLET PO SCH (21:30)
[2019-06-03] MEDS: haloperidoL 1 MG TAB PO SCH (21:30)
[2019-06-03] MEDS: PSEUDOEPHEDRINE HCL 30 MG TAB PO SCH (23:24)
[2019-06-04] MEDS: LORazepam 0.5 MG/1 ML VIAL IV PRN ×5 (00:11→09:52)
[2019-06-04] MEDS: SODIUM CHLORIDE 0.9% 1000ML 1,000 ML IV SCH ×3 (02:12→23:02)
[2019-06-04] MEDS: ACETAMINOPHEN 1,000 MG/100 ML VIAL IV PRN ×2 (05:38→14:44)
[2019-06-04] MEDS: METOCLOPRAMIDE HCL INJ 5 MG/ML 2 ML VIAL IV SCH ×2 (05:40→17:33)
[2019-06-04] MEDS: HEPARIN SOD 5,000 UNIT/0.5 ML VIAL SQ SCH ×3 (05:40→21:41)
[2019-06-04] MEDS: PSEUDOEPHEDRINE HCL 30 MG TAB PO SCH ×4 (05:40→21:31)
--- NOTE | 2019-06-04 06:58 | Hospitalist Progress Note ---
Date of Service June 04, 2019 Assessment & Plan (1) Nausea & vomiting: Pleasant 58 yo M with PMH HTN, DM2, HLD, and recently diagnosed Stage 4 pancreatic cancer with mets to the liver, lungs, lymph nodes and omentum s/p 2 rounds of chemotherapy 1 month ago, familiar with the palliative care team. 1) Nausea and Vomiting - Anti-Emetic regimen: - Dexamethasone 4 mg IV BID - Reglan 10 IV Q8H PRN - Haloperidol 1 mg PO TID - mildly improved with adjustments to above medications - appreciated input from palliative care team for pain and nausea recommendations 2) Pain secondary to pancreatic cancer - Tylenol 1g IV Q6H CARROLL - Ibuprofen 800 mg PO BID CARROLL - Lidocaine Patch - case management consulted for options for home hospice 3) Anxiety - Ativan 0.5 mg IV Q2H CARROLL - Atenolol 50 mg PO HS - Sertraline 50 mg PO daily 4) UTI - cloudy urine sample with positive nitrites, protein, trace leukocyte esterase - treating presumptively with ceftriaxone 4) HTN - Losartan 25 mg PO AM - ASA 81 daily 5) GERD - Pepcid 20mg IV BID 6) Goals of Care - working in close concert with palliative care team regarding optimization of care prior to going home on home hospice - continuing comfort measures and symptomatic control DVT ppx: none GI ppx: pepcid IV FEN: full diet Code: Full Code, going home on hospice care (2) Malignant neoplasm of pancreas metastatic to liver: (3) Goals of care, counseling/discussion: (4) Palliative care encounter: (5) Leukocytosis: (6) Anemia: (7) Diabetes mellitus, type 2: (8) Hyperlipidemia: (9) Hypertension: Admission and Anticipated Discharge Date Admission Date: June 02, 2019 Supervising Physician Co-Signing Physician Notes Attending attestation Pt seen and examined in concert with Dr. Crane. In agreement with the documented findings as noted in the resident documentation with any exceptions or additions as noted here. Improved control over nausea/vomiting today with improved somnolence as well. Still feeling unable to tolerate any considerable POI, feeling 'jittery' and anxious On examination, S1/S2 nl RRR no MCG. CTAB. Abd NT/ND BS+ve Intractable nausea/vomiting in the setting of metastatic pancreatic cancer - change lorazepam to SL, increase haldol to 2mg, change reglan to scopolamine patch. Continue to monitor. Else see resident documentation as noted. Subjective Feeling mildly less nauseous this morning, though hadn't had much chance to drink anything early in the morning when I was in the room. Hasn't had any episodes of emesis since yesterday but did say the pain was getting worse with Ibuprofen being PRN and that it worked better scheduled. Review of Systems Constitutional: + fatigue and + weakness Respiratory: no cough, no dyspnea and no pain on inspiration Cardiovascular: no chest pain and no dyspnea at rest Gastrointestinal: + nausea Physical Exam Respiratory: normal respiratory effort and able to speak in complete sentences; no respiratory distress, no labored breathing, no retractions, no cough and no audible wheezes Auscultation: lungs clear to auscultation bilaterally; no crackles, no rales, no rhonchi and no wheezes Cardiovascular: Rate/Rhythm: regular rate and regular rhythm Heart Sounds: normal S1 and normal S2; no gallop, no murmur and no cardiac rub Vessels: posterior tibial pulses present Extremities: no pedal edema and no edema Results & Data ([facility]) Vital Signs (Past 12 Hours) Vital Signs Temp Pulse Resp BP BP Pulse Ox 06/03/19 23:15 36.7 C 82 19 110/67 96 06/03/19 19:52 37.0 C 92 H 18 117/74 97 Laboratory Results WBC 13.72 K/uL (4.8-10.8) H 06/02/19 15:36 RBC 4.64 M/uL (4.7-6.1) L 06/02/19 15:36 Hgb 12.9 g/dL (14.0-18.0) L 06/02/19 15:36 Hct 38.7 % (42-52) L 06/02/19 15:36 MCV 83.4 fL (80-100) 06/02/19 15:36 MCH 27.8 pg (25-34) 06/02/19 15:36 MCHC 33.3 g/dL (32-36) 06/02/19 15:36 RDW Std Deviation 50.6 fL (36.4-46.3) H 06/02/19 15:36 RDW Coeff of Chava 16.9 % (11.5-14.5) H 06/02/19 15:36 Plt Count 356 K/uL (130-400) 06/02/19 15:36 MPV 9.7 fL (7.4-10.4) 06/02/19 15:36 Immature Gran % (Auto) 0.8 % 06/02/19 15:36 Neut % (Auto) 79.8 % 06/02/19 15:36 Lymph % (Auto) 7.9 % 06/02/19 15:36 Mcleod % (Auto) 9.2 % 06/02/19 15:36 Eos % (Auto) 1.9 % 06/02/19 15:36 Baso % (Auto) 0.4 % 06/02/19 15:36 Immature Gran # (Auto) 0.11 K/uL (0.00-0.02) H 06/02/19 15:36 Neut # (Auto) 10.94 K/uL (1.4-6.5) H 06/02/19 15:36 Lymph # (Auto) 1.09 K/uL (1.2-3.4) L 06/02/19 15:36 Mcleod # (Auto) 1.26 K/uL (0.11-0.59) H 06/02/19 15:36 Eos # (Auto) 0.26 K/uL (0-0.5) 06/02/19 15:36 Baso # (Auto) 0.06 K/uL (0-0.2) 06/02/19 15:36 Sodium 138 mmol/L (136-145) 06/04/19 09:09 Potassium 3.8 mmol/L (3.5-5.1) D 06/04/19 09:09 Chloride 106 mmol/L (98-107) 06/04/19 09:09 Carbon Dioxide 25 mmol/L (21-32) 06/04/19 09:09 Anion Gap 7.0 (3-11) 06/04/19 09:09 BUN 7 mg/dl (7-18) 06/04/19 09:09 Creatinine 0.53 mg/dl (0.6-1.4) L 06/04/19 09:09 Est Cr Clr Drug Dosing 185.0 ml/min 06/04/19 09:09 Est GFR ( Amer) 137.1 06/04/19 09:09 Est GFR (Non-Af Amer) 118.3 06/04/19 09:09 BUN/Creatinine Ratio 13.8 (10-20) 06/04/19 09:09 Glucose 157 mg/dl (70-99) H 06/04/19 09:09 POC Glucose 187 mg/dl (70-99) H 06/04/19 11:33 Calcium 8.6 mg/dl (8.5-10.1) 06/04/19 09:09 Magnesium 1.7 mg/dl (1.8-2.4) L 06/02/19 15:36 Total Bilirubin 1.6 mg/dl (0.2-1) H 06/02/19 15:36 AST 59 U/L (15-37) H 06/02/19 15:36 ALT 53 U/L (12-78) 06/02/19 15:36 Alkaline Phosphatase 716 U/L (45-117) H 06/02/19 15:36 Total Protein 7.1 gm/dl (6.4-8.2) 06/02/19 15:36 Albumin 2.3 gm/dl (3.4-5.0) L 06/02/19 15:36 Globulin 4.8 gm/dl (2.5-4.0) H 06/02/19 15:36 Albumin/Globulin Ratio 0.5 (0.9-2) L 06/02/19 15:36 Urine Color Atkins 06/02/19 21:48 Urine Appearance Cloudy (Clear) A 06/02/19 21:48 Urine pH 5.5 (4.5-7.5) 06/02/19 21:48 Ur Specific [place] 1.032 (1.000-1.030) H 06/02/19 21:48 Urine Protein 1+ (Negative) H 06/02/19 21:48 Urine Glucose (UA) Trace (Negative) H 06/02/19 21:48 Urine Ketones Trace (Negative) H 06/02/19 21:48 Urine Blood Negative (Negative) 06/02/19 21:48 Urine Nitrite Positive (Negative) A 06/02/19 21:48 Urine Bilirubin Negative (Negative) 06/02/19 21:48 Urine Urobilinogen Negative (Negative) 06/02/19 21:48 Ur Leukocyte Esterase Trace (Negative) H 06/02/19 21:48 Urine WBC (Auto) 10-30 /hpf (0-5) H 06/02/19 21:48 Urine RBC (Auto) 0-4 /hpf (0-4) 06/02/19 21:48 U Hyaline Cast (Auto) 10-30 /lpf (0-5) H 06/02/19 21:48 U Epithel Cells (Auto) 10-20 /lpf (0-5) H 06/02/19 21:48 Urine Bacteria (Auto) Negative (Negative) 06/02/19 21:48 Ur Renal Epithelial Cell Not Reportable 06/02/19 21:48 Calcium Oxalate Crystal Present (None Prsent) A 06/02/19 21:48 WBC Casts 1-5 /lpf (0) H 06/02/19 21:48 Urine Mucus Present (None Prsent) A 06/02/19 21:48 Resident Activity Tracking Resident Involvement: Resident Care Provided Care Provided: Adult Hospital Medicine
[2019-06-04] MEDS: NYSTATIN SUSP 500,000 U/5 ML UDC PO SCH ×5 (09:29→21:27)
[2019-06-04] MEDS: LIDOCAINE 5% 1 PATCH TD SCH (09:31)
[2019-06-04] MEDS: haloperidoL 1 MG TAB PO SCH ×3 (09:31→21:27)
[2019-06-04] MEDS: DEXAMETHASONE SOD PHOSPHATE 4 MG in SYRINGE 0 ML IV SCH ×2 (09:31→21:28)
[2019-06-04] MEDS: LOSARTAN POTASSIUM 25 MG TAB PO SCH (09:31)
[2019-06-04] MEDS: CETIRIZINE HCL 10 MG TABLET PO SCH (09:32)
[2019-06-04] MEDS: MULTIVITAMIN TAB PO SCH (09:32)
[2019-06-04] MEDS: ATORVASTATIN 20 MG TAB PO SCH (09:32)
[2019-06-04] MEDS: MAGNESIUM CHLORIDE 64MG DELAYED REL TAB PO SCH (09:32)
[2019-06-04] MEDS: SERTRALINE HCL 50 MG TABLET PO SCH (09:32)
[2019-06-04] MEDS: INSULIN ASPART 100 UNITS/ML 3 ML PEN SC SCH ×4 (09:51→21:40)
[2019-06-04] MEDS: FAMOTIDINE 20 MG in SYRINGE 3 ML IV SCH ×2 (09:51→21:27)
[2019-06-04 09:52] LABS: BUN Creatinine Ratio 13.8 (10-20); Calcium 8.6 mg/dl (8.5-10.1); Est GFR (African American) 137.1; Est GFR (Non-African American) 118.3; Potassium 3.8 mmol/L (3.5-5.1)
[2019-06-04] MEDS ORDERED: LORazepam 0.5 MG/1 ML VIAL IV SCH (10:00)
--- NOTE | 2019-06-04 11:17 | Palliative Care Progress Note ---
Date of Service June 04, 2019 Assessment & Plan (1) Goals of care, counseling/discussion: -Patient resting in bed, door closed and lights turned low. Pt son, Rolando and then his , Eloisa, were at the bedside. -Pain and nausea currently under control. Patient reports he was actually able to keep a popsicle down. -Nausea medications: -Reglan 10mg IV Q8h scheduled-- will continue. Plan to continue at home through hospice if able. -Lorazepam 0.5mg IV Q2h CARROLL, today this was switched to SL and into the later evening patient was not tolerating this, placed back on Lorazepam 0.5 mg IV Q2 CARROLL. (being used for anxiety and nausea). This should be available at home through hospice agency if needed. -Haldol 1mg PO TID scheduled-- Appears to be helpful. Increased this to Haldol 2mg po TID CARROLL. plan to continue at home if effective. Able to increase as needed to the max dose of 4 mg. -Patient is currently only taking PRN Tylenol for pain. Can escalate to something stronger if needed. No acute pain issues today. -[facility] did come and evaluate the patient for GIP. They did deny GIP coverage, but did offer to accept him home once the IV Reglan was discontinued. At this time, we agreed we would call back if the patient worsened. -Later in the afternoon around 1500, patients family called me up to the room and staetd that they talked with their game author and did some research and wanted to seek out another agency for once he is ready to go home. They would like a referral placed to [facility]. I replayed this information to Kristin in Case Management. -For now, I think that he is GIP appropriate as he is showing that the medication change from IV to SL was not successful and also that he is still requiring the IV Reglan. Would certainly be appropriate to admit patient under GIP with eventual transition to home when he is comfortable and well-managed. Again, need to know that IV medications could be available in the home. Per Case Management, referral to be placed in AM for [facility] and possible GIP. -Lengthy conversation held with the patient with Rolando at his bedside about how he was doing. He is visibly going through the grief stages and appears appropriate with how he is processing this all. We did discuss how it would be appropriate and a gift not only to himself, but to his adult children for future milestones. -I did talk to Eloisa in the hallway as the patient was resting regarding code status. She became very tearful. I provide some coping mechanisms and other things that may be helpful to say to Jorge as he goes through this journey. -We will continue to follow. (2) Malignant neoplasm of pancreas metastatic to liver: (3) Leukocytosis: (4) Laryngopharyngeal reflux: (5) Pancreatic cancer: (6) Nausea & vomiting: Subjective Patient reports he was feeling as though his nausea was somewhat controlled this morning. Patients son Rolando and Eloisa were at the bedside. [facility] and denied due to patient being comfortable at this time with current medication regimen. Please see A/P for details. Review of Systems Review of Systems: + mild abdominal and back pain. + nausea which is currently controlled. No vomiting since last evening. + drowsiness Physical Exam Constitutional: well developed, well nourished and comfortable; no acute distr ess ENMT: external ear and nose normal, oropharynx normal Respiratory: normal respiratory effort; no labored breathing Cardiovascular: Rate/Rhythm: regular rate and regular rhythm Extremities: no edema Neurologic: moves all extremities and awake; not confused Psychiatric: A+Ox3, euthymic affect Insight: good insight Judgement: good judgement Results & Data Vital Signs (Past 12 Hours) Vital Signs Temp Pulse Resp BP Pulse Ox 06/04/19 07:16 36.7 C 78 20 136/77 96 06/03/19 23:15 36.7 C 82 19 110/67 96 PG Care Time/CCT Total # of Minutes Spent Total Time Spent with Patient: Total time spent is greater than 50% in coordination of care (as documented) at patient's floor/unit and/or counseling patient: 45 Coding Level of Care Code 28304 Subseq Hosp Care Lvl 3 Diagnoses Goals of care, counseling/discussion Z71.89 Malignant neoplasm of pancreas metastatic to liver C25.9; C78.7 Leukocytosis D72.829 Laryngopharyngeal reflux K21.9 Pancreatic cancer C25.9 Nausea & vomiting R11.2 Time Spent (min) 45 Time Spent Midlevel Total time spent 45 minutes with > 50% of that time spent assessing the patient and discussing goals of care with the patient and his son.
[2019-06-04] MEDS: LORazepam 0.5 MG TAB SL SCH ×6 (12:21→21:26)
[2019-06-04] MEDS: IBUPROFEN 200 MG TAB PO SCH ×2 (12:21→21:25)
[2019-06-04] MEDS: cefTRIAXone SODIUM 2,000 MG in DEXTROSE 5% 50 ML IV SCH (12:28)
[2019-06-04] MEDS: ASPIRIN 81 MG ECTAB PO SCH (21:29)
[2019-06-04] MEDS: ATENOLOL 50 MG TABLET PO SCH (21:31)
[2019-06-04] MEDS: LORazepam 0.5 MG/1 ML VIAL IV SCH (23:22)
[2019-06-05] MEDS: LORazepam 0.5 MG/1 ML VIAL IV SCH ×6 (01:01→11:10)
[2019-06-05] MEDS: METOCLOPRAMIDE HCL INJ 5 MG/ML 2 ML VIAL IV SCH ×2 (01:02→09:34)
[2019-06-05] MEDS: ACETAMINOPHEN 1,000 MG/100 ML VIAL IV PRN (03:37)
[2019-06-05] MEDS: HEPARIN SOD 5,000 UNIT/0.5 ML VIAL SQ SCH ×3 (05:24→13:32)
[2019-06-05] MEDS: PSEUDOEPHEDRINE HCL 30 MG TAB PO SCH ×2 (05:25→11:35)
[2019-06-05] MEDS: LORazepam 0.5 MG TAB SL SCH ×5 (08:54→15:24)
[2019-06-05] MEDS ORDERED: Nursing to Pharmacy Communication ONE (09:00)
[2019-06-05] MEDS: SODIUM CHLORIDE 0.9% 1000ML 1,000 ML IV SCH (09:03)
[2019-06-05] MEDS: haloperidoL 1 MG TAB PO SCH ×2 (09:28→13:32)
[2019-06-05] MEDS: DEXAMETHASONE SOD PHOSPHATE 4 MG in SYRINGE 0 ML IV SCH (09:28)
[2019-06-05] MEDS: IBUPROFEN 200 MG TAB PO SCH (09:28)
[2019-06-05] MEDS: LOSARTAN POTASSIUM 25 MG TAB PO SCH (09:28)
[2019-06-05] MEDS: ATORVASTATIN 20 MG TAB PO SCH (09:29)
[2019-06-05] MEDS: MULTIVITAMIN TAB PO SCH (09:29)
[2019-06-05] MEDS: MAGNESIUM CHLORIDE 64MG DELAYED REL TAB PO SCH (09:30)
[2019-06-05] MEDS: FAMOTIDINE 20 MG in SYRINGE 3 ML IV SCH (09:30)
[2019-06-05] MEDS: SERTRALINE HCL 50 MG TABLET PO SCH (09:30)
[2019-06-05] MEDS: INSULIN ASPART 100 UNITS/ML 3 ML PEN SC SCH ×2 (09:34→14:00)
[2019-06-05] MEDS: LIDOCAINE 5% 1 PATCH TD SCH (09:58)
[2019-06-05] MEDS: NYSTATIN SUSP 500,000 U/5 ML UDC PO SCH ×2 (10:06→12:59)
[2019-06-05] MEDS: CETIRIZINE HCL 10 MG TABLET PO SCH (10:06)
[2019-06-05] MEDS: cefTRIAXone SODIUM 2,000 MG in DEXTROSE 5% 50 ML IV SCH (11:38)
[2019-06-05] MEDS ORDERED: BACLOFEN 10 MG TAB PO PRN (12:22)
--- NOTE | 2019-06-05 12:40 | Palliative Care Progress Note ---
Date of Service June 05, 2019 Assessment & Plan (1) Goals of care, counseling/discussion: -Pain and nausea are currently controlled. -Plan is for home, possibly later today, with [facility]. -Patient continues to be on IVF at 100ml/hr, continues to only tolerate clear liquids. and I discussed at length ways to get patient fluids and protein at home, even if he is only taking clear liquids. Recommended Boost Breeze and Liquacel-- or something like these supplements. Patient may require periodic IVF at home as well-- hospice can provide if needed. -Will continue lorazepam 0.5mg SL Q2h scheduled. -Switch Reglan to oral-- 10mg PO Q8h/TID scheduled-- he was taking this at home as well. -Continue Haldol 2mg PO TID scheduled. -Patient having intermittent hiccups that are quite bothersome. Will order Baclofen 10mg TID PRN hiccups. -Lengthy discussion with patient's separately about end of life issues, what to expect in the future, etc. She is tearful, but accepting of patient's prognosis and ready to take him home. (2) Malignant neoplasm of pancreas metastatic to liver: (3) Leukocytosis: (4) Laryngopharyngeal reflux: (5) Pancreatic cancer: (6) Nausea & vomiting: Subjective Patient sleeping soundly during my visit. Did wake up when a visitor came in. Patient's and friend at bedside. Patient's nausea has been controlled. He continues to only tolerate clear liquids. Review of Systems Review of Systems: + mild abdominal and back pain- controlled with PRN meds + nausea which is currently controlled. No vomiting + drowsiness Physical Exam Constitutional: well developed, well nourished and comfortable; no acute distress ENMT: external ear and nose normal, oropharynx normal Respiratory: normal respiratory effort; no labored breathing Cardiovascular: Rate/Rhythm: regular rate and regular rhythm Extremities: no edema Neurologic: moves all extremities; not confused Results & Data Vital Signs (Past 12 Hours) Vital Signs Temp Pulse Resp BP Pulse Ox 06/05/19 11:28 36.8 C 75 18 132/84 95 06/05/19 07:41 36.8 C 75 18 147/84 H 97 Supervising Physician Co-Signing Physician Notes Patient seen and examined on 2 separate occasions this afternoon. Patient's at bedside. Reviewed with both patient and medications for comfort to control nausea and anxiety at home. Collaborated with attending team. Patient states his nausea is fairly well controlled at this time, slight sedation due to medications. PE: Patient drowsy, alert enough to answer questions HEENT: EOMI, hearing within normal limits Respirations: Clear breath sounds CV: Regular rate Abdomen: Soft, nontender Extremities: Full range of motion Neuro: Oriented x4 Agree with above note, assessment and plan as per YAJAIRA Case-plan is for discharge home this afternoon with hospice care. PG Care Time/CCT Prolonged Care Time Total Prolonged Care Time: 55 Coding Level of Care Code 86719 Subseq Hosp Care Lvl 3 Diagnoses Goals of care, counseling/discussion Z71.89 Malignant neoplasm of pancreas metastatic to liver C25.9; C78.7 Leukocytosis D72.829 Laryngopharyngeal reflux K21.9 Pancreatic cancer C25.9 Nausea & vomiting R11.2 Time Spent (min) 45 Time Spent Midlevel 45 minutes with >50% of the time spent at bedside with patient and family discussing hospice, symptom management, end of life issues. Attending Spent 45 minutes in addition to the 45 minutes spent by YAJAIRA Case for a total of 90 minutes with greater than 50% of the time spent at bedside reviewing plan of care and providing support to . Critical Care Time Prolonged Care Time Total Prolonged Care Time: 55 90
[2019-06-05] MEDS ORDERED: METOCLOPRAMIDE HCL 10 MG TABLET PO SCH (14:00)
--- NOTE | 2019-06-05 15:50 | Discharge Summary ---
Date of Service June 05, 2019 Admission HPI Per Admitting Provider This is a 58-year-old male with widely metastatic pancreatic cancer that presents complaining of intractable nausea vomiting. Patient is accompanied by his and both are good historians. Patient was here very recently with similar complaints. He was followed by palliative care. He had received 2 rounds of chemotherapy approximately a month ago. Between yesterday he has had 5 episodes of emesis. He called his primary care physician who advised him to come to the emergency room. Patient was given Haldol, morphine, Benadryl, and Ativan along with IV Reglan. At the time my evaluation he feels that he may be a little improved and is now tolerating small amounts of water and ice chips. Of note, he denies any fever, chills, abdominal pain, chest pain. He does have a little bit of soreness under his ribs but this is not severe. Admission Exam Per Admitting Provider Constitutional: cooperative; no acute distress nonjaundiced, aninteric Neck: trachea midline, no thyromegaly Respiratory: normal respiratory effort Auscultation: lungs clear to auscultation bilaterally; no crackles, no rales, no rhonchi and no wheezes Cardiovascular: Rate/Rhythm: regular rate and regular rhythm Heart Sounds: normal S1, normal S2 and + murmur Gastrointestinal (Abdomen): Inspection/Auscultation: abdomen normal to inspection Percussion/Palpation: abdomen soft; abdomen nontender, no guarding, abdomen not rigid and no hepatosplenomegaly Skin: no rashes, warm and dry Principal Diagnosis Intractable nausea and vomiting Discharge Exam Respiratory normal respiratory effort and able to speak in complete sentences; no respiratory distress, no labored breathing, no retractions, no cough and no audible wheezes Auscultation: lungs clear to auscultation bilaterally; no crackles, no rales, no rhonchi and no wheezes Cardiovascular Rate/Rhythm: regular rate and regular rhythm Heart Sounds: normal S1 and normal S2; no gallop, no murmur and no cardiac rub Vessels: posterior tibial pulses present Extremities: no pedal edema and no edema Discharge Data Allergies Allergy/AdvReac Type Severity Reaction Status Date / Time lisinopril Allergy Unknown Cough Verified 06/02/19 17:23 Consultations 06/02/19 17:17 Consult Palliative Care Stat 06/02/19 18:23 ED Decision to Admit Stat 06/03/19 08:47 Consult Case Management - Discharge Planning Routine Hospital Course (1) Nausea & vomiting: Pleasant 58 yo M with PMH HTN, DM2, HLD, and recently diagnosed Stage 4 pancreatic cancer with mets to the liver, lungs, lymph nodes and omentum s/p 2 rounds of chemotherapy 1 month ago, familiar with the palliative care team. During his hospital stay, Mr. Bauer went through a number of medication regimen changes in an effort to best control his nausea and vomiting. Dr. Tran from palliative care worked with us in close concert for both discussions on goals of care as well as medication options and optimization. Ultimately, the anti-emetic regimen that appeared to be working at time of discharge was as follows: Haloperidol 2mg by mouth three times a day and Metoclopramide 10 mg by mouth every 8 hours. Pain management consisted primarily of 1,000 mg of Tylenol every 6 hours and 800 mg of Ibuprofen twice a day. He was able to tolerate Ativan 0.5 mg sublingual every 2 hours for anxiety control. He was also treated for an abnormal UA with ceftriaxone for 3 days in the event that a UTI was causing any of his nausea and discomfort. He was discharge home with [facility] home hospice support and Dr. Tran will continue to follow him as his hospice physician. (2) Malignant neoplasm of pancreas metastatic to liver: (3) Goals of care, counseling/discussion: (4) Palliative care encounter: (5) Leukocytosis: (6) Anemia: (7) Diabetes mellitus, type 2: (8) Hyperlipidemia: (9) Hypertension: Total Time Total Time Spent Total Time Spent (In Minutes): Discharge Plan Discharge Items Patient Disposition: Hospice - Home Reason For Visit: INTRACTABLE N/V Discharge Diagnosis: intractable nausea and vomiting Activity: Resume your previous activity Non-emergency contact: Primary Care Provider and Oncologist Call non-emergency contact if: you have any medication questions and your pain is not controlled Follow-up/Referrals: Georges Licea MD [Primary Care Provider] - 06/11/19 8:10 am (With Dr Marmolejo ) Diet: Regular Addtl Attending Provider Instructions: You were evaluated in the hospital for continuing nausea and vomiting secondary to your pancreatic cancer. A number of different medications were tried to help resolve this. The regimen that appeared to be working at time of discharge is as follows: Haloperidol 2mg by mouth three times a day and Metoclopramide 10 mg by mouth every 8 hours. Your pain medications consisted of 1,000 mg of Tylenol every 6 hours and 800 mg of Ibuprofen twice a day. Continue to use the Ativan 0.5 mg sublingual (dissolvable under your tongue) every 2 hours. As you adjust to controlling your nausea and pain at home, contact Dr. Tran if your current regimen of medications is inadequate for symptom control and you require additional intervention. Pending Studies at Discharge: No Stand-Alone Forms: [facility] Medications and DC Order Prescriptions: New haloperidol 1 mg Tablet 2 mg PO TID Qty: 180 RF: 0 baclofen 10 mg Tablet 10 mg PO TID PRN (Reason: pain) Qty: 90 RF: 0 Continued atenolol 50 mg tablet 50 mg PO HS RF: 0 multivitamin Tablet 1 tab PO QAM RF: 0 atorvastatin 20 mg Tablet 20 mg PO QAM RF: 0 cetirizine [24Hour Allergy] 10 mg Tablet 10 mg PO QAM RF: 0 aspirin 81 mg Tablet,Delayed Release (Dr/Ec) 81 mg PO HS RF: 0 losartan [Cozaar] 25 mg Tablet 25 mg PO QAM RF: 0 sertraline 50 mg tablet 50 mg PO DAILY RF: 0 metoclopramide HCl 10 mg tablet 10 mg PO Q8H PRN (Reason: Nausea And Vomiting) RF: 0 ibuprofen 200 mg Capsule 600 - 800 mg PO BID PRN (Reason: Pain) RF: 0 metformin 500 mg tablet 1,000 mg PO DAILY RF: 0 acetaminophen [Tylenol Extra Strength] 500 mg Tablet 1,000 mg PO Q6H PRN (Reason: Pain) RF: 0 Discontinued lorazepam [Ativan] 0.5 mg tablet 0.5 mg PO Q4 PRN (Reason: Anxiety) RF: 0 prochlorperazine maleate 10 mg tablet 10 mg PO Q6H PRN (Reason: Nausea And Vomiting) RF: 0 Discharge Orders: Discharge Order (Routine); Ordered 06/05/19 Ordered By: Yvette Crane Admission Data Admit Date/Time: 06/04/19 13:25 Attending Provider: Georges Licea Admit Provider: Micky Pickens Primary Care Provider: Georges Licea Other Providers: Yvette Crane ; Anitha Tran ; Micky Pickens ; [facility],Home Healthcare Other Interventions: Discharge Summary Assessment (RN) Last Done: 06/05/19 16:01 [place] Date/Time DO NOT enter until pt leaves facility: 06/05/19 17:44 Supervising Physician Co-Signing Physician Notes Attending attestation Pt seen and examined in concert with Dr. Crane. In agreement with the documented findings as noted in the resident documentation with any exceptions or additions as noted here. Tolerating POI well with clears/popsicles with nausea well controlled, no vomiting today. Feeling comfortable to return home on present regimen. Encouraged to continue to titrate for improved oral nutrition if possible. On examination, S1/S2 nl RRR no MCG. CTAB. Abd NT/ND BS+ve Returning to home with family on home hospice with support through [facility] and Dr. Tran. Intractable nausea and vomiting in the setting of metastatic pancreatic cancer - continue regimen of PPI, reglan, ativan, haloperidol. Counseled on SLOW advance of tolerated intake where able with medication assistance. Abdominal pain 2/2 pancreatic cancer - continue acetaminophen. Would avoid ibuprofen secondary to risk of gastritis. UTI - urine culture with skin quinton contaminant. Treated with rocephin x 3 days, so will d/c therapy and follow. Else see resident documentation as noted. Time Spent: 60 minutes. Resident Activity Tracking Resident Involvement: Resident Care Provided Care Provided: Adult Hospital Medicine
== END 2019-06-05 17:44 | disposition hospice, home (50) | DRG 392 ==
LOC: ED 14:40 → 2W 14:40 → SUATTDRO 20:15 → 2W 22:12 → 4W 06-03 19:49